=== PATIENT | female | born 1965 | race Caucasian/White ===

== ENCOUNTER 2022-03-20 10:52 | Inpatient (IN) ==
[2022-03-20 12:01] LABS: Appearance Urine Clear (Clear); Bacteria Urine Automated 1+ (Negative); Blood Urine Negative (Negative); Color Urine Dark Yellow; Epithelial Cell Urine Auto >30 /lpf (0-5); Glucose Urine UA Negative (Negative); Ketones Urine Trace (Negative); Leukocyte Esterase Urine Trace (Negative); Nitrite Urine Negative (Negative); Protein Urine Trace (Negative); Specific Gravity Urine 1.023 (1.000-1.030); Urobilinogen Urine Negative (Negative); pH Urine 6.5 (4.5-7.5)
[2022-03-20 12:02] LABS: Bilirubin Urine 1+ (Negative)
[2022-03-20] MEDS ORDERED: SODIUM CHLORIDE 0.9% 1000ML 1,000 ML IV ONE ×2 (12:05→12:14)
[2022-03-20 12:10] LABS: RBC Urine Automated 0-4 /hpf (0-4)
[2022-03-20] MEDS ORDERED: MoRPHine SULFATE 4 MG/ML 1 ML CARP\\VIAL IV STA (12:13)
[2022-03-20] MEDS ORDERED: ONDANSETRON INJ 2 MG/ML 2 ML VIAL IV STA (12:13)
[2022-03-20] MEDS ORDERED: FAMOTIDINE 20MG IV PUSH 20 MG/5 ML SYR IV STA (12:13)
[2022-03-20] MEDS ORDERED: ACETAMINOPHEN 1,000 MG/100 ML VIAL IV STA (12:13)
[2022-03-20 12:14] LABS: Hematocrit (blood only) 36.1 % (37-47); Hemoglobin 12.6 g/dL (12.0-16.0); Mean Corpuscular Hemoglobin 37.3 pg (25-34); Mean Corpuscular Hgb Conc 34.9 g/dL (32-36); Mean Corpuscular Volume 106.8 fL (80-100); Mean Platelet Volume 10.2 fL (7.4-10.4); Platelet Count 289 K/uL (130-400); RDW Coefficient of Variation 13.6 % (11.5-14.5); RDW Standard Deviation 53.1 fL (36.4-46.3); Red Blood Count 3.38 M/uL (4.2-5.4); White Blood Count 29.38 K/uL (4.8-10.8)
[2022-03-20 12:22] LABS: INR 1.1 (0.9-1.1); Partial Thromboplastin Ratio 0.9; Partial Thromboplastin Time 24.8 Seconds (21.0-31.0); Prothrombin Time 11.7 Seconds (9.0-12.0)
[2022-03-20 12:40] LABS: Albumin Globulin Ratio 1.1 (0.9-2); Albumin Level 4.1 gm/dl (3.4-5.0); BUN Creatinine Ratio 19.8 (10-20); Basophils # (auto) 0.01 K/uL (0-0.2); Bilirubin,Total 0.4 mg/dl (0.2-1.0); Calcium 10.4 mg/dl (8.5-10.1); Creatinine Clr Calc Pharmacy 64.3 ml/min; Eosinophils # (auto) 0.03 K/uL (0-0.5); Eosinophils % (auto) 0.1 %; Est GFR (African American) 68.9 ml/min; Est GFR (Non-African American) 59.5 ml/min; Globulin 3.6 gm/dl (2.5-4.0); Immature Granulocytes # (auto) 0.13 K/uL (0.00-0.02); Immature Granulocytes % (auto) 0.4 %; Lymphocytes # (auto) 1.56 K/uL (1.2-3.4); Lymphocytes % (auto) 5.3 %; Monocytes % (auto) 5.8 %; Neutrophils # (auto) 25.95 K/uL (1.4-6.5); Neutrophils % (auto) 88.4 %; Potassium 3.3 mmol/L (3.5-5.1); Total Protein 7.7 gm/dl (6.0-8.3)
[2022-03-20 12:56] LABS: Influenza A virus by PCR Negative (Neg); Influenza B virus by PCR Negative (Neg); RSV by PCR Negative (Neg); SARS CoV2 RNA(COVID-19) InHosp NEGATIVE (Negative)
[2022-03-20] MEDS ORDERED: OPTIRAY 320 125ml IV ONE (13:13)
--- NOTE | 2022-03-20 13:36 | CT Scan Report ---
CT OF THE ABDOMEN AND PELVIS WITH CONTRAST CLINICAL HISTORY: Metastatic ovarian cancer. Back pain. COMPARISON STUDY: CT of the abdomen and pelvis May 28, 2021. TECHNIQUE: Following IV administration of 120 mL of Optiray, axial images of the abdomen and pelvis w ere obtained from the lung bases to the proximal femurs. Images were reviewed in the axial, sagittal, and coronal planes. IV contrast was administered without complication. Automated exposure control w as utilized for the study. A dose lowering technique was utilized adhering to the principles of FLOYD Virk. Oral contrast was administered. FINDINGS: Please note that the chest CT will be reported separately. No pneumatosis, free air or port al venous gas is present. There has been interval development of extensive hepatic metastatic disease since CT of May 28, 2021. Confluent right hepatic lobe metastases are present. A discrete segment 6 lesion measures 4 cm. There is mild intrahepatic biliary ductal dilatation. There is marked narrowin g of the distal main portal vein as well as the proximal right portal vein due to extrinsic compressi on. A portacaval lymph node measures 3.2 x 2.1 cm and has mass effect upon the IVC. The spleen, adren al glands and pancreas are unremarkable. There is no peripancreatic infiltration. No pancreatic ducta l dilatation is present. Mild left hydroureteronephrosis is noted. There is caliber change of the lef t ureter at the level of the pelvis on axial image 387 of 496. This is likely due to peritoneal impla nts. Extensive peritoneal carcinomatosis is present. No bowel obstruction is present. There may be se jorge implants on the sigmoid colon and rectum. Small sclerotic lesions within the L1 and L4 vertebra l bodies are new since prior CT. These reflect metastases. No pathologic fracture. No epidural extens ion is identified by CT. A small amount of abdominal and pelvic ascites is present. The uterus and ov rodri are surgically absent. Contrast within the colon and rectum from prior CT is present. IMPRESSION: 1. Extensive hepatic, nirmal and peritoneal metastases, as described above. L1 and L4 vertebral body m etastases. No pathologic fracture. No epidural extension. 2. No bowel obstruction. Contrast within the colon and rectum from prior CT may reflect delayed trans it of contrast. 3. Mild left hydroureteronephrosis due to mass effect upon the distal left ureter by implants within the pelvis. 4. Marked extrinsic compression of the main and right portal veins. Mass effect upon the IVC by a pat hologic lymph node. ACT 112: Negative or not required by law. Electronically signed by: Ben Hyde M.D. 03/20/2022 1:35 PM
--- NOTE | 2022-03-20 14:05 | CT Scan Report ---
CT ANGIO CHEST PE PROTOCOL CT DOSE: 979.79 mGycm HISTORY: 56 years-old Female with metastatic ovar ca, back pain r/o PE. Subsequent treatment strate gy. Follow-up study in a patient with history of metastatic ovarian carcinoma. TECHNIQUE: Multiple CTA images of the chest were obtained after the intravenous administration of 120 ml Optiray. Coronal and sagittal MIPS were obtained from the axial data set and were submitted for review. All measurements were obtained according to NASCET criteria. A dose lowering technique was u tilized adhering to the principles of ALARA. COMPARISON: None. CT abdomen and pelvis of same day and also 05/28/2021, chest radiograph 03/20/2018. FINDINGS: CTA: The heart is normal in size. There is no pericardial effusion. There is no thoracic aortic aneurysm o r dissection. Unremarkable pulmonary artery. There are no filling defects identified to suggest throm boembolic disease. CT CHEST: Thyroid nodules measure up to 11 mm on the right. No pathologically enlarged lymph nodes identified w ithin the chest. There is no pneumothorax, pleural effusion or overt pulmonary edema. Mild subsegment al bibasilar atelectasis. There are numerous tiny fissural nodules within the right midlung measuring up to 3 mm. There is a small cluster of subsegmental solid nodules in the lingula on image 180 measu ring up to 4 mm. 4 mm fissural nodule of the left upper lung on image 187. 3 mm solid nodule of the right upper lobe, image 139. The central airways are patent. Unremarkable soft tissues. No destructive bone lesions are identified. Findings within the upper abdo men include new multifocal hepatic metastasis with progressive peritoneal/omental carcinomatosis. Upp er abdominal metastatic lymphadenopathy is also noted. Nonspecific proximal gastric thickening. IMPRESSION: 1. No pulmonary emboli. 2. Numerous tiny bilateral fissural nodules measuring up to 4 mm are suggestive of physiologic lymph nodes. There are a few bilateral solid pulmonary nodules measuring up to 4 mm within the lingula whic h are of low clinical suspicion. Attention at follow-up recommended. 3. Please refer to the CT abdomen and pelvis study of same day for discussion of the hepatic metastas is, omental/peritoneal carcinomatosis and metastatic lymphadenopathy. ACT 112: Negative or not required by law. The above report was generated using voice recognition software. It may contain grammatical, syntax o r spelling errors. Dictated: 03/20/2022 1:34 PM Transcribed: 03/20/2022 1:54 PM Nena [id number] [facility] Electronically signed by: Catracho Chapin M.D. 03/20/2022 2:04 PM
[2022-03-20 14:06] LABS: Magnesium 1.3 mg/dl (1.7-2.4); Phosphorus 3.5 mg/dl (2.5-4.9)
[2022-03-20 14:11] LABS: Troponin I High Sensitivity 13.8 pg/ml (0-14)
[2022-03-20] MEDS ORDERED: CEFEPIME 2,000 MG/20 ML VIAL IV STA (14:39)
[2022-03-20] MEDS ORDERED: LACTATED RINGER'S 500 ML IV ONE (14:42)
[2022-03-20] MEDS ORDERED: LACTATED RINGER'S 1,000 ML IV SCH (14:45)
--- NOTE | 2022-03-20 14:59 | Electrocardiogram Report ---
Test Reason : Blood Pressure : / mmHG Vent. Rate : 100 BPM Atrial Rate : 100 BPM P-R Int : 142 ms QRS Dur : 090 ms QT Int : 354 ms P-R-T Axes : 051 076 045 degrees QTc Int : 456 ms Normal sinus rhythm Normal ECG No previous ECGs available Confirmed by Waldo Vazquez ([id number]) on 03/20/2022 2:59:23 PM Referred By: Confirmed By:Owen Vazquez
[2022-03-20] MEDS: MAGNESIUM SULFATE / D5W 1 GM/100 ML BAG IV SCH ×2 (15:18→16:19)
--- NOTE | 2022-03-20 15:18 | History & Physical Report ---
Date of Service March 20, 2022 Assessment & Plan (1) Nausea & vomiting: (2) Leukocytosis: Plan: Patient is 56-year-old female with PMH right ovarian CA s/p ROSIO and BSO and omentectomy and chemo, HTN, GERD presented to ER with c/o nausea and vomiting WBC: 29, lactate WNL, procalcitonin: 1.7. UA: + Leuk esterase, 1+ bacteria, > 30 epithelial. Was tachycardic in ER at 113 down to 80bpm after IVF Blood cultures pending, urine culture pending Meets SIRS criteria. Possible UTI In ER given cefepime, 2L NSS, 500 mL LR Will continue cefepime IVF CBC, CMP in am (3) Ovarian cancer: (4) Hydronephrosis: Plan: History right ovarian cancer. Metastatic CT abdomen pelvis: 1. Extensive hepatic, nirmal and peritoneal metastases, as described above. L1 and L4 vertebral body metastases. No pathologic fracture. No epidural extension. 2. No bowel obstruction. Contrast within the colon and rectum from prior CT may reflect delayed transit of contrast. 3. Mild left hydroureteronephrosis due to mass effect upon the distal left ureter by implants within the pelvis. 4. Marked extrinsic compression of the main and right portal veins. Mass effect upon the IVC by a pathologic lymph node. No urinary retention. No ELENA. Elevated LFTs Continue oxycodone prn pain with added IV morphine for breakthrough pain Palliative consult Continue oncology follow up (5) Hypomagnesemia: Plan: Magnesium: 1.3 Given 1 g magnesium sulfate in ER Continue magnesium replacement (6) Hypokalemia: Plan: K: 3.3 NSS+ KCl Monitor (7) Hyponatremia: Plan: Na: 131 IVF (8) Hypertension: Plan: Continue lisinopril. Hold HCTZ (9) GERD (gastroesophageal reflux disease): Plan: Continue PPI DVT Prophylaxis Lovenox SQ Full Code as per discussion with pt Follows with Dr Ochoa for routine care Pt was seen and care coordinated with Dr Bautista. See addendum History of Present Illness Chief Complaint: Nausea and vomiting Primary Care Provider: Kenyetta Ochoa MD Patient is 56-year-old female with PMH right ovarian CA s/p ROSIO and BSO and omentectomy and chemo, HTN, GERD presented to ER with c/o nausea and vomiting. Patient reports nausea and vomiting started 3 days ago. has been having left sided back and left hip pain, right sided abdominal pain for months that seems to be getting worse. Reports vomiting and taking Zofran without much relief. Temp 99.6F yesterday. Sweats today. No BM for 6 days. Completed chemo 01/09/2022. Has had recent increasing CA [address] abdomen pelvis on 03/12/2022: Progression of metastatic disease with multiple enlarging and new hepatic metastasis, increasing peritoneal carcinomatosis, new lymphadenopathy and suspected new bony metastatic disease Seen by oncology- Dr Torres on 03/18/2022. Denies hematemesis, melena, hematochezia, PENA, dizziness, syncope, vision changes, neck pain, CP, SOB, orthopnea, palpitations, cough, sore throat, choking, otalgia, rhinorrhea, paresthesias, extremity weakness, extremity edema, rashes, urinary symptoms. Allergies Allergy/AdvReac Type Severity Reaction Status Date / Time No Known Drug Allergies Allergy Unknown NONE Verified 03/20/22 15:15 Home Medications Medication Instructions Recorded Confirmed Type lisinopril 10 1 tab PO DAILY 05/28/21 03/20/22 History mg-hydrochlorothiazide 12.5 mg tablet famotidine 20 mg tablet 20 mg PO BID PRN 03/20/22 03/20/22 History lorazepam 0.5 mg tablet 0.5 mg PO Q6H PRN 03/20/22 03/20/22 History magnesium oxide 400 mg PO BID 03/20/22 03/20/22 History oxycodone-acetaminophen 5 mg-325 1 tab PO Q6H PRN 03/20/22 03/20/22 History mg tablet pantoprazole 40 mg tablet,delayed 40 mg PO DAILY 03/20/22 03/20/22 History release (Protonix) sennosides 8.6 mg tablet (Senokot) 8.6 mg PO BID 03/20/22 03/20/22 History Past Med/Surg History Medical History GERD (gastroesophageal reflux disease) Hypertension Ovarian cancer Tobacco use Surgical History (Updated 03/20/22 @ 19:57 by Brenda Ely PA-C) History of cholecystectomy History of total abdominal hysterectomy and bilateral salpingo-oophorectomy Hx of tonsillectomy Family History (Updated 03/20/22 @ 19:57 by Brenda Ely PA-C) Other Diabetes Hypertension Social History (Updated 03/20/22 @ 15:49 by Brenda Ely PA-C) Smoking Status: Former smoker Tobacco Type: Cigarettes Hx Alcohol Use: No Hx Substance Use: No Preferred Language: Belarusian Communication Ability: Effective Raise Driller Required: No Beliefs That Will Affect Care: None Current Living Situation: Family Other Information That Helps Us Care for You: No Feels Safe at Home: Yes Review of Systems Review of Systems: All systems reviewed & are unremarkable except as noted in HPI & below Physical Exam Physical Exam: General: no acute distress, chronic ill appearing femal e Head: normocephalic, atraumatic Eyes: PERRL, EOM's intact, conjunctiva non-injected, anicteric ENT: normal inspection external ears, nose, mucous membranes mildy dry Neck: supple, trachea midline Lungs: clear, no respiratory distress, no wheezing/rhonchi/rales CV: RRR, no murmur, no pretibial edema Abd: normal BS, soft, + tenderness right upper abdomen to palpation, no rebound Ext: no cyanosis, no calf tenderness Neuro: A&O x 3, no focal deficits noted, normal affect Skin: warm, dry Results & Data Results & Data ([facility]) Vital Signs (Past 12 Hours) Vital Signs Temp Pulse Resp BP Pulse Ox 03/20/22 14:00 78 19 97 03/20/22 13:30 80 18 149/87 H 03/20/22 13:24 76 19 148/91 H 03/20/22 13:12 86 19 03/20/22 12:30 86 22 120/89 03/20/22 12:25 91 H 21 136/78 03/20/22 12:23 90 30 H 03/20/22 10:55 36.4 C L 113 H 16 115/69 98 Laboratory Results Short CBC 03/20/22 Range/Units 11:30 WBC 29.38 H (4.8-10.8) K/uL Hgb 12.6 (12.0-16.0) g/dL Hct 36.1 L (37-47) % Plt Count 289 (130-400) K/uL BMP 03/20/22 11:30 Sodium 131 L Potassium 3.3 L Chloride 85 L Carbon Dioxide 33 H BUN 21 Creatinine 1.06 Glucose 112 H Calcium 10.4 H Liver Function 03/20/22 Range/Units 11:30 Total Bilirubin 0.4 (0.2-1.0) mg/dl AST 82 H (13-39) U/L ALT 102 H (7-52) U/L Alkaline Phosphatase 304 H (34-104) U/L Albumin 4.1 (3.4-5.0) gm/dl Urine 03/20/22 Range/Units 11:20 Urine Color Dark Yellow Urine Appearance Clear (Clear) Urine pH 6.5 (4.5-7.5) Ur Specific [place] 1.023 (1.000-1.030) Urine Protein Trace H (Negative) Urine Glucose (UA) Negative (Negative) Diagnostic Findings Abdomen/Pelvis CT 03/20/22 12:14 CT OF THE ABDOMEN AND PELVIS WITH CONTRAST CLINICAL HISTORY: Metastatic ovarian cancer. Back pain. COMPARISON STUDY: CT of the abdomen and pelvis May 28, 2021. TECHNIQUE: Following IV administration of 120 mL of Optiray, axial images of the abdomen and pelvis were obtained from the lung bases to the proximal femurs. Images were reviewed in the axial, sagittal, and coronal planes. IV contrast was administered without complication. Automated exposure control was utilized for the study. A dose lowering technique was utilized adhering to the principles of ALARA. Oral contrast was administered. FINDINGS: Please note that the chest CT will be reported separately. No pneumatosis, free air or portal venous gas is present. There has been interval development of extensive hepatic metastatic disease since CT of May 28, 2021. Confluent right hepatic lobe metastases are present. A discrete segment 6 lesion measures 4 cm. There is mild intrahepatic biliary ductal dilatation. There is marked narrowing of the distal main portal vein as well as the proximal right portal vein due to extrinsic compression. A portacaval lymph node measures 3.2 x 2.1 cm and has mass effect upon the IVC. The spleen, adrenal glands and pancreas are unremarkable. There is no peripancreatic infiltration. No pancreatic ductal dilatation is present. Mild left hydroureteronephrosis is noted. There is caliber change of the left ureter at the level of the pelvis on axial image 387 of 496. This is likely due to peritoneal implants. Extensive peritoneal carcinomatosis is present. No bowel obstruction is present. There may be serosal implants on the sigmoid colon and rectum. Small sclerotic lesions within the L1 and L4 vertebral bodies are new since prior CT. These reflect metastases. No pathologic fracture. No epidural extension is identified by CT. A small amount of abdominal and pelvic ascites is present. The uterus and ovaries are surgically absent. Contrast within the colon and rectum from prior CT is present. IMPRESSION: 1. Extensive hepatic, nirmal and peritoneal metastases, as described above. L1 and L4 vertebral body metastases. No pathologic fracture. No epidural extension. 2. No bowel obstruction. Contrast within the colon and rectum from prior CT may reflect delayed transit of contrast. 3. Mild left hydroureteronephrosis due to mass effect upon the distal left ureter by implants within the pelvis. 4. Marked extrinsic compression of the main and right portal veins. Mass effect upon the IVC by a pathologic lymph node. ACT 112: Negative or not required by law. Electronically signed by: Ben Hyde M.D. 03/20/2022 1:35 PM Chest CTA 03/20/22 12:14 CT ANGIO CHEST PE PROTOCOL CT DOSE: 979.79 mGycm HISTORY: 56 years-old Female with metastatic ovar ca, back pain r/o PE. Subsequent treatment strategy. Follow-up study in a patient with history of metastatic ovarian carcinoma. TECHNIQUE: Multiple CTA images of the chest were obtained after the intravenous administration of 120 ml Optiray. Coronal and sagittal MIPS were obtained from the axial data set and were submitted for review. All measurements were obtained according to NASCET criteria. A dose lowering technique was utilized adhering to the principles of ALARA. COMPARISON: None. CT abdomen and pelvis of same day and also 05/28/2021, chest radiograph 03/20/2018. FINDINGS: CTA: The heart is normal in size. There is no pericardial effusion. There is no thoracic aortic aneurysm or dissection. Unremarkable pulmonary artery. There are no filling defects identified to suggest thromboembolic disease. CT CHEST: Thyroid nodules measure up to 11 mm on the right. No pathologically enlarged lymph nodes identified within the chest. There is no pneumothorax, pleural effusion or overt pulmonary edema. Mild subsegmental bibasilar atelectasis. There are numerous tiny fissural nodules within the right midlung measuring up to 3 mm. There is a small cluster of subsegmental solid nodules in the lingula on image 180 measuring up to 4 mm. 4 mm fissural nodule of the left upper lung on image 187. 3 mm solid nodule of the right upper lobe, image 139. The central airways are patent. Unremarkable soft tissues. No destructive bone lesions are identified. Findings within the upper abdomen include new multifocal hepatic metastasis with progressive peritoneal/omental carcinomatosis. Upper abdominal metastatic lymphadenopathy is also noted. Nonspecific proximal gastric thickening. IMPRESSION: 1. No pulmonary emboli. 2. Numerous tiny bilateral fissural nodules measuring up to 4 mm are suggestive of physiologic lymph nodes. There are a few bilateral solid pulmonary nodules measuring up to 4 mm within the lingula which are of low clinical suspicion. Attention at follow-up recommended. 3. Please refer to the CT abdomen and pelvis study of same day for discussion of the hepatic metastasis, omental/peritoneal carcinomatosis and metastatic lymphadenopathy. ACT 112: Negative or not required by law. The above report was generated using voice recognition software. It may contain grammatical, syntax or spelling errors. Dictated: 03/20/2022 1:34 PM Transcribed: 03/20/2022 1:54 PM Nena [id number] [facility] Electronically signed by: Catracho Chapin M.D. 03/20/2022 2:04 PM Supervising Physician Co-Signing Physician Notes Date of Service: March 20, 2022 History and physical exam performed by hi History notable for 56-year-old woman With history of right ovarian cancer status post ROSIO and BSO, chemo, hypertension and GERD who presented with nausea and vomiting for the past 3 days with worsening abdominal, left hip and back pain. Also reports constipation for the past 6 days. Physical exam notable for right-sided abdominal tenderness right upper back tenderness. Labs notable for WBC of 29,000, sodium of 131, potassium of 3.3, chloride of 85, bicarbonate of 33, anion gap of 13, calcium of 10.4, magnesium of 1.3, AST of 82, ALT of 102, alkaline phosphatase of 304, procalcitonin of 1.7, urinalysis showed positive leukocyte esterase, WBC of 10-[address] notable for extensive hepatic, nirmal and peritoneal metastasis, L1 and L4 vertebral m etastasis, no bowel obstruction contrast within colon or rectum from prior CT, mild left hydroureteronephrosis due to mass-effect upon distal left ureter by implants within the pelvis. Intractable nausea vomiting Metastatic ovarian cancer Possible sepsis based on SIRS criteria and possible UTI Continue antibiotics Follow-up urine and blood cultures Pain control Bowel regimen Palliative consult Other plans as detailed by Brenda Ely PA-C
--- NOTE | 2022-03-20 16:38 | Communication Note ---
Date of Service: March 20, 2022 History and physical exam performed by me History notable for 56-year-old woman With history of right ovarian cancer status post ROSIO and BSO, chemo, hypertension and GERD who presented with nausea and vomiting for the past 3 days with worsening abdominal, left hip and back pain. Also reports constipation for the past 6 days. Physical exam notable for right-sided abdominal tenderness right upper back tenderness. Labs notable for WBC of 29,000, sodium of 131, potassium of 3.3, chloride of 85, bicarbonate of 33, anion gap of 13, calcium of 10.4, magnesium of 1.3, AST of 82, ALT of 102, alkaline phosphatase of 304, procalcitonin of 1.7, urinalysis showed positive leukocyte esterase, WBC of 10-[address] notable for extensive hepatic, nirmal and peritoneal metastasis, L1 and L4 vertebral metastasis, no bowel obstruction contrast within colon or rectum from prior CT, mild left hydroureteronephrosis due to mass-effect upon distal left ureter by implants within the pelvis. Intractable nausea vomiting Metastatic ovarian cancer Possible sepsis based on SIRS criteria and possible UTI Continue antibiotics Follow-up urine and blood cultures Pain control Bowel regimen Palliative consult Other plans as detailed by Brenda Ely PA-C
[2022-03-20] MEDS ORDERED: bisacodyL 10 MG SUPP PR STA (17:04)
[2022-03-20] MEDS ORDERED: ACETAMINOPHEN 325 MG TAB PO PRN (18:46)
[2022-03-20] MEDS ORDERED: FAMOTIDINE 20 MG TAB PO PRN (18:46)
[2022-03-20] MEDS ORDERED: oxyCODONE/ACETAMINOPHEN 5mg/325mg TAB PO PRN (18:46)
[2022-03-20] MEDS ORDERED: NSS + 20MEQ KCL 20 MEQ/1,000 ML BAG IV SCH (19:15)
[2022-03-20] MEDS ORDERED: MAGNESIUM SULFATE / D5W 1 GM/100 ML BAG IV ONE (19:15)
[2022-03-20] MEDS: MoRPHine SULFATE 4 MG/ML 1 ML CARP\\VIAL IV PRN (19:39)
[2022-03-20] MEDS: POLYETHYLENE (MIRALAX) 17 GM PACK PO SCH (20:12)
[2022-03-20] MEDS: ENOXAPARIN INJ 40 MG/0.4 ML SYR SQ SCH (20:15)
[2022-03-20] MEDS: DOCUSATE SODIUM/SENNA 50/8.6MG TAB PO SCH (20:18)
[2022-03-20] MEDS: ONDANSETRON INJ 2 MG/ML 2 ML VIAL IV PRN (22:27)
[2022-03-20] MEDS: PROMETHAZINE HCL 12.5 MG in SODIUM CHLORIDE 0.9% 50 ML IV PRN (23:59)
[2022-03-21] MEDS: CEFEPIME 2,000 MG in SYRINGE 0 ML IV SCH ×4 (00:01→23:37)
--- NOTE | 2022-03-21 01:30 | Emergency Department Note ---
Impression & Plan Intractable nausea and vomiting, Hypomagnesemia, Hypokalemia, SIRS (systemic inflammatory response syndrome), Metastatic disease, Urinary tract infection ED Provider Note NAME: NATHANAEL BARNARD AGE: 56 SEX: F ARRIVES VIA: Walk-In INFORMANT: Patient ED PROVIDER(S): Kermit Sorensen MD CHIEF COMPLAINT: n/v, dehydration. PLAN: Disposition: Admit MEDICAL DECISION MAKING: The patient is a pleasant 56-year-old woman with a past medical history of metastatic ovarian cancer who presents to the emergency department with persistent nausea and vomiting over the past week where she feels she is becoming increasingly dehydrated. She denies objective fevers but has felt somewhat warm and chills.She reports ongoing mid right back pain that is unchanged but admits that there is increased pain when she breathes. She denies any symptoms. The patient is uncomfortable but in no acute distress, afebrile with HR 100s and otherwise stable vital signs. She appears clinically dry. She has generalized abdominal discomfort without discrete tenderness. WBC 29K, with neutrophil predominance and left shit. H/H 12.6/36.1 without recent for comparison. Platelets wnl. Chemistry without acidosis. Potassium 3.3 and Magnesium 1.3 with repletion initiated. LFTs with AST, ALT, and AP, 82, 102, and 304, respectively total bilirubin, wnl, nonspecific. Procalcitonin was also elevated at 1.7. Patient's urine appeared contaminated however was suspicious for urinary infection. The patient was treated empirically with IV cefepime. Covid-19 PCR negative. Influenza and RSV PCR negative. CTA chest and abd/pelvis performed. Negative for PE. Low suspicion pulmonary nodules seen. Otherwise extensive hepatic, nirmal and peritoneal metastases is seen in additional to metastasis of L1 andL4 vertebral bodies. No fx or epidural extension. Mild left hydroureteronephrosis 2/2 mass effect on distal left ureter 2/2 implants within the pelvis. Compression of main and right portal veins. Mass effect upon IVC 2/2 pathologic node. Given the patient's intractable nausea and vomiting with possible component of sepsis in the setting of patient's metastatic disease reasonable to proceed with admission at this time. Case was discussed with Nakita Ely, [facility] PAC, with Dr. Michele Collier hospitalist who will evaluate the patient for admission. Triage Nursing notes reviewed and agree them. Prior medical records reviewed Vital Signs: reviewed and remarkable for tachycardia. Differential diagnosis: Infection, dehydration, metabolic abnormality, hypo/hyperglycemia, electrolyte disturbance, anemia, hypoxia, cardiac sources, intracerebral event, toxicologic, neurologic, as well as other pathologies. ER treatment provided: See below. Diagnostics interpreted by me: ECG: NSR, 100 bpm, no ectopy, no overt ST elevation or depression. Cardiac Monitoring: An order for continuous cardiac monitoring was placed and demonstrated NSR, 100 bpm, no ectopy. Laboratory studies: See below Imaging studies: See below Consultation(s): Nakita Ely, [facility], with Dr. Michele Collier hospitalist. HPI: The patient is a pleasant 56-year-old woman with a past medical history of metastatic ovarian cancer who presents to the emergency department with persistent nausea and vomiting over the past week where she feels she is becoming increasingly dehydrated. She denies objective fevers but has felt somewhat warm and chills.She reports ongoing mid right back pain that is unchanged but admits that there is increased pain when she breathes. She denies any symptoms. ROS: See above HPI for pertinent positives & negatives. A total of 10 systems reviewed and were otherwise negative. VITALS:See Below PHYSICAL EXAMINATION: GENERAL: Awake, alert, uncomfortable/fatigued-appearing, in no distress HENT: Normocephalic, atraumatic. Oropharynx with dry mucous membranes and otherwise unremarkable. . EYES: Normal conjunctiva. Sclera non-icteric. NECK: Supple. No nuchal rigidity. FROM. No JVD. RESPIRATORY: Clear to auscultation. CARDIAC: Tachycardic rate, normal rhythm. Extremities warm and well perfused. Pulses equal. ABDOMEN: Soft, non-distended. No tenderness to palpation. No rebound or guarding. No masses. RECTAL: Deferred. MUSCULOSKELETAL: Chest examination reveals no tenderness. The back is symmetrical on inspection without obvious abnormality. There is no CVA tenderness to palpation. No joint edema. LOWER EXTREMITIES: Calves are equal size bilaterally and non-tender. No edema. No discoloration. NEURO: Normal sensorium. No sensory or motor deficits noted. SKIN: No rash or jaundice noted. Critical Care: I have personally spent greater than 45 minutes of critical care time in the direct management of this patient. This includes bedside care, interpretation of diagnostic studies, and testing, discussion with consultants, patient, and family members, and other required patient management activities. This 45 minutes is in excess of all separately billable procedures. Kermit Sorensen MD Past Med/Surg History Medical History GERD (gastroesophageal reflux disease) Hypertension Ovarian cancer Tobacco use Surgical History History of cholecystectomy History of total abdominal hysterectomy and bilateral salpingo-oophorectomy Hx of tonsillectomy Family History Other Diabetes Hypertension Social History Smoking Status: Former smoker Tobacco Type: Cigarettes Hx Alcohol Use: No Hx Substance Use: No Preferred Language: Croatian Communication Ability: Effective [employer] Required: No Beliefs That Will Affect Care: None Current Living Situation: Family Other Information That Helps Us Care for You: No Feels Safe at Home: Yes Assistive Devices: Glasses Allergies Allergies Allergy/AdvReac Type Severity Reaction Status Date / Time No Known Drug Allergies Allergy Unknown NONE Verified 03/20/22 15:15 Home Meds Home Medications Medication Instructions Recorded Confirmed lisinopril 10 1 tab PO DAILY 05/28/21 03/20/22 mg-hydrochlorothiazide 12.5 mg tablet famotidine 20 mg tablet 20 mg PO BID PRN 03/20/22 03/20/22 lorazepam 0.5 mg tablet 0.5 mg PO Q6H PRN 03/20/22 03/20/22 magnesium oxide 400 mg PO BID 03/20/22 03/20/22 oxycodone-acetaminophen 5 mg-325 1 tab PO Q6H PRN 03/20/22 03/20/22 mg tablet pantoprazole 40 mg tablet,delayed 40 mg PO DAILY 03/20/22 03/20/22 release (Protonix) sennosides 8.6 mg tablet (Senokot) 8.6 mg PO BID 03/20/22 03/20/22 Results & Data (ED) Vital Signs Vital Signs - 24 hr 03/20/22 16:30 03/20/22 16:31 Pulse Rate 70 71 Respiratory Rate 16 21 Blood Pressure Mean 160 Laboratory Data Attestation: I reviewed the patient's lab results. Result diagrams: 03/21/22 05:44 03/21/22 05:44 Lab Results 03/20/22 03/20/22 03/20/22 Range/Units 11:20 11:25 11:30 WBC 29.38 H (4.8-10.8) K/uL RBC 3.38 L (4.2-5.4) M/uL Hgb 12.6 (12.0-16.0) g/dL Hct 36.1 L (37-47) % MCV 106.8 H (80-100) fL MCH 37.3 H (25-34) pg MCHC 34.9 (32-36) g/dL RDW Std Deviation 53.1 H (36.4-46.3) fL RDW Coeff of Lavon 13.6 (11.5-14.5) % Plt Count 289 (130-400) K/uL MPV 10.2 (7.4-10.4) fL Immature Gran % (Auto) 0.4 % Neut % (Auto) 88.4 % Lymph % (Auto) 5.3 % [place] % (Auto) 5.8 % Eos % (Auto) 0.1 % Baso % (Auto) 0.0 % Neut # (Auto) 25.95 H (1.4-6.5) K/uL Lymph # (Auto) 1.56 (1.2-3.4) K/uL [place] # (Auto) 1.70 H (0.11-0.59) K/uL Eos # (Auto) 0.03 (0-0.5) K/uL Baso # (Auto) 0.01 (0-0.2) K/uL Immature Gran # (Auto) 0.13 H (0.00-0.02) K/uL PT (9.0-12.0) Seconds INR (0.9-1.1) APTT (21.0-31.0) Seconds PTT Ratio Sodium (136-145) mmol/L Potassium (3.5-5.1) mmol/L Chloride (98-107) mmol/L Carbon Dioxide (21-32) mmol/L Anion Gap (3-11) BUN (6-23) mg/dl Creatinine (0.6-1.2) mg/dl Est Cr Clr Drug Dosing ml/min Est GFR ( Amer) ml/min Est GFR (Non-Af Amer) ml/min BUN/Creatinine Ratio (10-20) Glucose (70-99(Fasting)) mg/dl Lactate (0.4-2.0) mmol/L Calcium (8.5-10.1) mg/dl Phosphorus (2.5-4.9) mg/dl Magnesium (1.7-2.4) mg/dl Total Bilirubin (0.2-1.0) mg/dl AST (13-39) U/L ALT (7-52) U/L Alkaline Phosphatase (34-104) U/L Troponin I High Sens (0-14) pg/ml B-Natriuretic Peptide (0-100) pg/ml Total Protein (6.0-8.3) gm/dl Albumin (3.4-5.0) gm/dl Globulin (2.5-4.0) gm/dl Albumin/Globulin Ratio (0.9-2) Procalcitonin (0-0.5) ng/ml Urine Color Dark Yellow Urine Appearance Clear (Clear) Urine pH 6.5 (4.5-7.5) Ur Specific [place] 1.023 (1.000-1.030) Urine Protein Trace H (Negative) Urine Glucose (UA) Negative (Negative) Urine Ketones Trace H (Negative) Urine Blood Negative (Negative) Urine Nitrite Negative (Negative) Urine Bilirubin 1+ H (Negative) Urine Urobilinogen Negative (Negative) Ur Leukocyte Esterase Trace H (Negative) Urine WBC (Auto) 10-30 H (0-5) /hpf Urine RBC (Auto) 0-4 (0-4) /hpf U Hyaline Cast (Auto) 10-30 H (0-5) /lpf U Epithel Cells (Auto) >30 H (0-5) /lpf Urine Bacteria (Auto) 1+ H (Negative) Urine Yeast Not Reportable SARS-CoV-2 (PCR) NEGATIVE (Negative) Influenza Type A (PCR) Negative (Neg) Influenza Type B (PCR) Negative (Neg) RSV (RT-PCR) Negative (Neg) 03/20/22 03/20/22 03/20/22 Range/Units 11:30 11:30 13:20 WBC (4.8-10.8) K/uL RBC (4.2-5.4) M/uL Hgb (12.0-16.0) g/dL Hct (37-47) % MCV (80-100) fL MCH (25-34) pg MCHC (32-36) g/dL RDW Std Deviation (36.4-46.3) fL RDW Coeff of Lavon (11.5-14.5) % Plt Count (130-400) K/uL MPV (7.4-10.4) fL Immature Gran % (Auto) % Neut % (Auto) % Lymph % (Auto) % [place] % (Auto) % Eos % (Auto) % Baso % (Auto) % Neut # (Auto) (1.4-6.5) K/uL Lymph # (Auto) (1.2-3.4) K/uL [place] # (Auto) (0.11-0.59) K/uL Eos # (Auto) (0-0.5) K/uL Baso # (Auto) (0-0.2) K/uL Immature Gran # (Auto) (0.00-0.02) K/uL PT 11.7 (9.0-12.0) Seconds INR 1.1 (0.9-1.1) APTT 24.8 (21.0-31.0) Seconds PTT Ratio 0.9 Sodium 131 L (136-145) mmol/L Potassium 3.3 L (3.5-5.1) mmol/L Chloride 85 L (98-107) mmol/L Carbon Dioxide 33 H (21-32) mmol/L Anion Gap 13 H (3-11) BUN 21 (6-23) mg/dl Creatinine 1.06 (0.6-1.2) mg/dl Est Cr Clr Drug Dosing 64.3 ml/min Est GFR ( Amer) 68.9 ml/min Est GFR (Non-Af Amer) 59.5 ml/min BUN/Creatinine Ratio 19.8 (10-20) Glucose 112 H (70-99(Fasting)) mg/dl Lactate (0.4-2.0) mmol/L Calcium 10.4 H (8.5-10.1) mg/dl Phosphorus 3.5 (2.5-4.9) mg/dl Magnesium 1.3 L (1.7-2.4) mg/dl Total Bilirubin 0.4 (0.2-1.0) mg/dl AST 82 H (13-39) U/L ALT 102 H (7-52) U/L Alkaline Phosphatase 304 H (34-104) U/L Troponin I High Sens 13.8 (0-14) pg/ml B-Natriuretic Peptide (0-100) pg/ml Total Protein 7.7 (6.0-8.3) gm/dl Albumin 4.1 (3.4-5.0) gm/dl Globulin 3.6 (2.5-4.0) gm/dl Albumin/Globulin Ratio 1.1 (0.9-2) Procalcitonin (0-0.5) ng/ml Urine Color Urine Appearance (Clear) Urine pH (4.5-7.5) Ur Specific [place] (1.000-1.030) Urine Protein (Negative) Urine Glucose (UA) (Negative) Urine Ketones (Negative) Urine Blood (Negative) Urine Nitrite (Negative) Urine Bilirubin (Negative) Urine Urobilinogen (Negative) Ur Leukocyte Esterase (Negative) Urine WBC (Auto) (0-5) /hpf Urine RBC (Auto) (0-4) /hpf U Hyaline Cast (Auto) (0-5) /lpf U Epithel Cells (Auto) (0-5) /lpf Urine Bacteria (Auto) (Negative) Urine Yeast SARS-CoV-2 (PCR) (Negative) Influenza Type A (PCR) (Neg) Influenza Type B (PCR) (Neg) RSV (RT-PCR) (Neg) 03/20/22 03/20/22 03/20/22 Range/Units 13:20 13:20 13:20 WBC (4.8-10.8) K/uL RBC (4.2-5.4) M/uL Hgb (12.0-16.0) g/dL Hct (37-47) % MCV (80-100) fL MCH (25-34) pg MCHC (32-36) g/dL RDW Std Deviation (36.4-46.3) fL RDW Coeff of Lavon (11.5-14.5) % Plt Count (130-400) K/uL MPV (7.4-10.4) fL Immature Gran % (Auto) % Neut % (Auto) % Lymph % (Auto) % [place] % (Auto) % Eos % (Auto) % Baso % (Auto) % Neut # (Auto) (1.4-6.5) K/uL Lymph # (Auto) (1.2-3.4) K/uL [place] # (Auto) (0.11-0.59) K/uL Eos # (Auto) (0-0.5) K/uL Baso # (Auto) (0-0.2) K/uL Immature Gran # (Auto) (0.00-0.02) K/uL PT (9.0-12.0) Seconds INR (0.9-1.1) APTT (21.0-31.0) Seconds PTT Ratio Sodium (136-145) mmol/L Potassium (3.5-5.1) mmol/L Chloride (98-107) mmol/L Carbon Dioxide (21-32) mmol/L Anion Gap (3-11) BUN (6-23) mg/dl Creatinine (0.6-1.2) mg/dl Est Cr Clr Drug Dosing ml/min Est GFR ( Amer) ml/min Est GFR (Non-Af Amer) ml/min BUN/Creatinine Ratio (10-20) Glucose (70-99(Fasting)) mg/dl Lactate 1.1 (0.4-2.0) mmol/L Calcium (8.5-10.1) mg/dl Phosphorus (2.5-4.9) mg/dl Magnesium (1.7-2.4) mg/dl Total Bilirubin (0.2-1.0) mg/dl AST (13-39) U/L ALT (7-52) U/L Alkaline Phosphatase (34-104) U/L Troponin I High Sens (0-14) pg/ml B-Natriuretic Peptide 80 (0-100) pg/ml Total Protein (6.0-8.3) gm/dl Albumin (3.4-5.0) gm/dl Globulin (2.5-4.0) gm/dl Albumin/Globulin Ratio (0.9-2) Procalcitonin 1.70 H (0-0.5) ng/ml Urine Color Urine Appearance (Clear) Urine pH (4.5-7.5) Ur Specific [place] (1.000-1.030) Urine Protein (Negative) Urine Glucose (UA) (Negative) Urine Ketones (Negative) Urine Blood (Negative) Urine Nitrite (Negative) Urine Bilirubin (Negative) Urine Urobilinogen (Negative) Ur Leukocyte Esterase (Negative) Urine WBC (Auto) (0-5) /hpf Urine RBC (Auto) (0-4) /hpf U Hyaline Cast (Auto) (0-5) /lpf U Epithel Cells (Auto) (0-5) /lpf Urine Bacteria (Auto) (Negative) Urine Yeast SARS-CoV-2 (PCR) (Negative) Influenza Type A (PCR) (Neg) Influenza Type B (PCR) (Neg) RSV (RT-PCR) (Neg) Administered Medications Enoxaparin Sodium (Enoxaparin Inj 40 Mg/0.4 Ml Syr) 40 mg SQ Q24H [facility] Stop: 04/19/22 19:59 Last Admin: 03/20/22 20:15 Dose: Not Given Documented by: [id number] Cefepime HCl 2,000 mg/ Syringe 20 mls @ 5 mls/min IV Q8H [facility]; Protocol Stop: 03/23/22 00:00 Last Admin: 03/21/22 16:22 Dose: 5 mls/min Documented by: [id number] Admin: 03/21/22 07:25 Dose: 5 mls/min Documented by: [id number] Admin: 03/21/22 00:01 Dose: 5 mls/min Documented by: [id number] Promethazine HCl 12.5 mg/ (Sodium Chloride) 50.5 mls @ 202 mls/hr IV Q6H PRN PRN Reason: Nausea And Vomiting Stop: 04/19/22 23:26 Last Infusion: 03/21/22 00:22 Dose: 0 mls/hr Documented by: [id number] Admin: 03/20/22 23:59 Dose: 202 mls/hr Documented by: [id number] Lisinopril (Lisinopril 10 Mg Tab) 10 mg PO QAM [facility] Stop: 04/20/22 08:59 Last Admin: 03/21/22 07:26 Dose: 10 mg Documented by: [id number] Morphine Sulfate (Morphine Sulfate 4 Mg/Ml 1 Ml Carp\Vial) 3 mg IV Q4H PRN PRN Reason: Severe Pain Stop: 04/03/22 18:45 Last Admin: 03/21/22 12:35 Dose: 3 mg Documented by: [id number] Admin: 03/20/22 19:39 Dose: 3 mg Documented by: [id number] Ondansetron HCl (Ondansetron Inj 2 Mg/Ml 2 Ml Vial) 4 mg IV Q6H PRN PRN Reason: Nausea Stop: 04/19/22 18:45 Last Admin: 03/20/22 22:27 Dose: 4 mg Documented by: [id number] Pantoprazole Sodium (Pantoprazole 40 Mg Tab) 40 mg PO DAILY DIEUDONNE Stop: 04/20/22 08:59 Last Admin: 03/21/22 07:27 Dose: 40 mg Documented by: [id number] Polyethylene Glycol (Polyethylene (Miralax) 17 Gm Pack) 17 gm PO DAILY DIEUDONNE Stop: 04/19/22 18:59 Last Admin: 03/21/22 07:26 Dose: 17 gm Documented by: [id number] Admin: 03/20/22 20:12 Dose: 17 gm Documented by: [id number] Senna/Docusate Sodium (Docusate Sodium/Senna 50/8.6mg Tab) 1 tab PO QAM DIEUDONNE Stop: 04/19/22 19:14 Last Admin: 03/21/22 07:27 Dose: 1 tab Documented by: [id number] Admin: 03/20/22 20:18 Dose: 1 tab Documented by: [id number] Discontinued Medications Bisacodyl (Bisacodyl 10 Mg Supp) 10 mg [place] NOW STA Stop: 03/20/22 17:05 Last Admin: 03/20/22 17:14 Dose: 10 mg Documented by: [id number] Sodium Chloride (Nss 1000ml) 1,000 mls @ 999 mls/hr IV .Q1H1M ONE Stop: 03/20/22 13:05 Last Infusion: 03/20/22 13:29 Dose: 0 mls/hr Documented by: [id number] Admin: 03/20/22 12:32 Dose: 999 mls/hr Documented by: [id number] Famotidine (Pepcid 20mg Iv Push) 20 mg in 5 mls @ 2.5 mls/min IV NOW STA Stop: 03/20/22 12:14 Last Admin: 03/20/22 12:30 Dose: 2.5 mls/min Documented by: [id number] Acetaminophen (Ofirmev) 1,000 mg in 100 mls @ 400 mls/hr IV NOW STA Stop: 03/20/22 12:27 Last Infusion: 03/20/22 12:56 Dose: 0 mls/hr Documented by: [id number] Admin: 03/20/22 12:25 Dose: 400 mls/hr Documented by: [id number] Sodium Chloride (Nss 1000ml) 1,000 mls @ 999 mls/hr IV .Q1H1M ONE Stop: 03/20/22 13:14 Last Infusion: 03/20/22 15:25 Dose: 0 mls/hr Documented by: [id number] Admin: 03/20/22 13:29 Dose: 999 mls/hr Documented by: [id number] Cefepime HCl (Maxipime) 2,000 mg in 20 mls @ 5 mls/min IV NOW STA; Protocol Stop: 03/20/22 14:42 Last Admin: 03/20/22 15:15 Dose: 5 mls/min Documented by: [id number] Magnesium Sulfate/Dextrose (Magnesium Sulfate / D5w) 1 gm in 100 mls @ 100 mls/hr IV Q1H DIEUDONNE Stop: 03/20/22 16:41 Last Infusion: 03/20/22 17:38 Dose: 0 mls/hr Documented by: [id number] Admin: 03/20/22 16:19 Dose: 100 mls/hr Documented by: [id number] Infusion: 03/20/22 16:19 Dose: 0 mls/hr Documented by: [id number] Admin: 03/20/22 15:18 Dose: 100 mls/hr Documented by: [id number] Lactated Ringer's (Lr) 1,000 mls @ 125 mls/hr IV .Q8H DIEUDONNE Stop: 04/19/22 14:44 Last Infusion: 03/20/22 19:51 Dose: 0 mls/hr Documented by: [id number] Admin: 03/20/22 15:56 Dose: 125 mls/hr Documented by: [id number] Lactated Ringer's (Lr) 500 mls @ 999 mls/hr IV .Q31M ONE Stop: 03/20/22 15:12 Last Infusion: 03/20/22 15:56 Dose: 0 mls/hr Documented by: [id number] Admin: 03/20/22 15:18 Dose: 999 mls/hr Documented by: [id number] Magnesium Sulfate/Dextrose (Magnesium Sulfate / D5w) 1 gm in 100 mls @ 50 mls/hr IV ONE ONE Stop: 03/20/22 21:14 Last Infusion: 03/20/22 22:16 Dose: 0 mls/hr Documented by: [id number] Admin: 03/20/22 20:10 Dose: 50 mls/hr Documented by: [id number] Potassium Chloride/Sodium Chloride (Normal Saline W/20 Meq Kcl) 20 meq in 1,000 mls @ 100 mls/hr IV .Q10H DIEUDONNE; Protocol Stop: 03/21/22 05:14 Last Infusion: 03/21/22 07:17 Dose: 0 mls/hr Documented by: [id number] Admin: 03/20/22 20:13 Dose: 100 mls/hr Documented by: [id number] Ioversol (Optiray 320 125ml) 120 ml IV ONCE ONE Stop: 03/20/22 13:14 Last Admin: 03/20/22 13:13 Dose: 120 ml Documented by: [id number] Morphine Sulfate (Morphine Sulfate 4 Mg/Ml 1 Ml Carp\Vial) 4 mg IV NOW STA Stop: 03/20/22 12:14 Last Admin: 03/20/22 12:27 Dose: 4 mg Documented by: [id number] Ondansetron HCl (Ondansetron Inj 2 Mg/Ml 2 Ml Vial) 4 mg IV NOW STA Stop: 03/20/22 12:14 Last Admin: 03/20/22 12:25 Dose: 4 mg Documented by: [id number] Imaging Data Radiologist's Impression: Abdomen/Pelvis CT 03/20/22 12:14 CT OF THE ABDOMEN AND PELVIS WITH CONTRAST CLINICAL HISTORY: Metastatic ovarian cancer. Back pain. COMPARISON STUDY: CT of the abdomen and pelvis May 28, 2021. TECHNIQUE: Following IV administration of 120 mL of Optiray, axial images of the abdomen and pelvis were obtained from the lung bases to the proximal femurs. Images were reviewed in the axial, sagittal, and coronal planes. IV contrast was administered without complication. Automated exposure control was utilized for the study. A dose lowering technique was utilized adhering to the principles of ALARA. Oral contrast was administered. FINDINGS: Please note that the chest CT will be reported separately. No pneumatosis, free air or portal venous gas is present. There has been interval development of extensive hepatic metastatic disease since CT of May 28, 2021. Confluent right hepatic lobe metastases are present. A discrete segment 6 lesion measures 4 cm. There is mild intrahepatic biliary ductal dilatation. There is marked narrowing of the distal main portal vein as well as the proximal right portal vein due to extrinsic compression. A portacaval lymph node measures 3.2 x 2.1 cm and has mass effect upon the IVC. The spleen, adrenal glands and pancreas are unremarkable. There is no peripancreatic infiltration. No pancreatic ductal dilatation is present. Mild left hydroureteronephrosis is noted. There is caliber change of the left ureter at the level of the pelvis on axial image 387 of 496. This is likely due to peritoneal implants. Extensive peritoneal carcinomatosis is present. No bowel obstruction is present. There may be serosal implants on the sigmoid colon and rectum. Small sclerotic lesions within the L1 and L4 vertebral bodies are new since prior CT. These reflect metastases. No pathologic fracture. No epidural extension is identified by CT. A small amount of abdominal and pelvic ascites is present. The uterus and ovaries are surgically absent. Contrast within the colon and rectum from prior CT is present. IMPRESSION: 1. Extensive hepatic, nirmal and peritoneal metastases, as described above. L1 and L4 vertebral body metastases. No pathologic fracture. No epidural extension. 2. No bowel obstruction. Contrast within the colon and rectum from prior CT may reflect delayed transit of contrast. 3. Mild left hydroureteronephrosis due to mass effect upon the distal left ureter by implants within the pelvis. 4. Marked extrinsic compression of the main and right portal veins. Mass effect upon the IVC by a pathologic lymph node. ACT 112: Negative or not required by law. Electronically signed by: Ben Hyde M.D. 03/20/2022 1:35 PM Chest CTA 03/20/22 12:14 CT ANGIO CHEST PE PROTOCOL CT DOSE: 979.79 mGycm HISTORY: 56 years-old Female with metastatic ovar ca, back pain r/o PE. Subsequent treatment strategy. Follow-up study in a patient with history of metastatic ovarian carcinoma. TECHNIQUE: Multiple CTA images of the chest were obtained after the intravenous administration of 120 ml Optiray. Coronal and sagittal MIPS were obtained from the axial data set and were submitted for review. All measurements were obtained according to NASCET criteria. A dose lowering technique was utilized adhering to the principles of ALARA. COMPARISON: None. CT abdomen and pelvis of same day and also 05/28/2021, chest radiograph 03/20/2018. FINDINGS: CTA: The heart is normal in size. There is no pericardial effusion. There is no thoracic aortic aneurysm or dissection. Unremarkable pulmonary artery. There are no filling defects identified to suggest thromboembolic disease. CT CHEST: Thyroid nodules measure up to 11 mm on the right. No pathologically enlarged lymph nodes identified within the chest. There is no pneumothorax, pleural effusion or overt pulmonary edema. Mild subsegmental bibasilar atelectasis. There are numerous tiny fissural nodules within the right midlung measuring up to 3 mm. There is a small cluster of subsegmental solid nodules in the lingula on image 180 measuring up to 4 mm. 4 mm fissural nodule of the left upper lung on image 187. 3 mm solid nodule of the right upper lobe, image 139. The central airways are patent. Unremarkable soft tissues. No destructive bone lesions are identified. Findings within the upper abdomen include new multifocal hepatic metastasis with progressive peritoneal/omental carcinomatosis. Upper abdominal metastatic lymphadenopathy is also noted. Nonspecific proximal gastric thickening. IMPRESSION: 1. No pulmonary emboli. 2. Numerous tiny bilateral fissural nodules measuring up to 4 mm are suggestive of physiologic lymph nodes. There are a few bilateral solid pulmonary nodules measuring up to 4 mm within the lingula which are of low clinical suspicion. Attention at follow-up recommended. 3. Please refer to the CT abdomen and pelvis study of same day for discussion of the hepatic metastasis, omental/peritoneal carcinomatosis and metastatic lymphadenopathy. ACT 112: Negative or not required by law. The above report was generated using voice recognition software. It may contain grammatical, syntax or spelling errors. Dictated: 03/20/2022 1:34 PM Transcribed: 03/20/2022 1:54 PM Nena [id number] [facility] Electronically signed by: Catracho Chapin M.D. 03/20/2022 2:04 PM Discharge Plan Visit Data Chief Complaint: Dehydration Stated Complaint: NAUSEA, VOMITING, BACK PAIN, WEAKNESS ED Provider: Kermit Sorensen Discharge Problem: Intractable nausea and vomiting, Hypomagnesemia, Hypokalemia, SIRS (systemic inflammatory response syndrome), Metastatic disease, Urinary tract infection Patient Disposition: Admitted As Inpatient Discharge Instructions Interventions: ED Discharge Assessment Last Done: 03/20/22 17:56 Discharge Problem: Metastatic disease Qualifiers: Area of secondary neoplastic involvement: unspecified site Qualified Code(s): C79.9 - Secondary malignant neoplasm of unspecified site Urinary tract infection Qualifiers: Urinary tract infection type: acute cystitis Hematuria presence: with hematuria Qualified Code(s): N30.01 - Acute cystitis with hematuria
[2022-03-21 06:48] LABS: Hematocrit (blood only) 32.6 % (37-47); Hemoglobin 10.9 g/dL (12.0-16.0); Mean Corpuscular Hemoglobin 36.2 pg (25-34); Mean Corpuscular Hgb Conc 33.4 g/dL (32-36); Mean Corpuscular Volume 108.3 fL (80-100); Mean Platelet Volume 10.2 fL (7.4-10.4); Platelet Count 221 K/uL (130-400); RDW Standard Deviation 55.6 fL (36.4-46.3); Red Blood Count 3.01 M/uL (4.2-5.4); White Blood Count 27.58 K/uL (4.8-10.8)
[2022-03-21 07:24] LABS: Albumin Globulin Ratio 1.2 (0.9-2); Albumin Level 3.4 gm/dl (3.4-5.0); BUN Creatinine Ratio 17.2 (10-20); Bilirubin,Total 1.2 mg/dl (0.2-1.0); Calcium 8.9 mg/dl (8.5-10.1); Creatinine Clr Calc Pharmacy 80.5 ml/min; Est GFR (African American) 87.5 ml/min; Est GFR (Non-African American) 75.5 ml/min; Globulin 2.9 gm/dl (2.5-4.0); Magnesium 1.9 mg/dl (1.7-2.4); Potassium 3.4 mmol/L (3.5-5.1); Total Protein 6.3 gm/dl (6.0-8.3)
[2022-03-21] MEDS: POLYETHYLENE (MIRALAX) 17 GM PACK PO SCH (07:26)
[2022-03-21] MEDS: lisinopril 10 MG TAB PO SCH (07:26)
[2022-03-21] MEDS: DOCUSATE SODIUM/SENNA 50/8.6MG TAB PO SCH (07:27)
[2022-03-21 07:29] LABS: Basophils # (auto) 0.02 K/uL (0-0.2); Basophils % (auto) 0.1 %; Eosinophils # (auto) 0.07 K/uL (0-0.5); Eosinophils % (auto) 0.3 %; Immature Granulocytes # (auto) 0.14 K/uL (0.00-0.02); Immature Granulocytes % (auto) 0.5 %; Lymphocytes # (auto) 1.18 K/uL (1.2-3.4); Lymphocytes % (auto) 4.3 %; Macrocytosis Present; Monocytes # (auto) 1.47 K/uL (0.11-0.59); Monocytes % (auto) 5.3 %; Neutrophils % (auto) 89.5 %; Ovalocytes 1+
[2022-03-21] MEDS ORDERED: PANTOprazole 40 MG TAB PO SCH (09:00)
[2022-03-21] MEDS: MoRPHine SULFATE 4 MG/ML 1 ML CARP\\VIAL IV PRN ×2 (12:35→21:02)
[2022-03-21] MEDS ORDERED: POTASSIUM CHLORIDE CRTAB 20 MEQ TABCR PO STA (17:23)
--- NOTE | 2022-03-21 17:30 | Hospitalist Progress Note ---
Date of Service March 21, 2022 Assessment & Plan (1) Intractable nausea and vomiting: Plan: 56-year-old female with PMH right ovarian CA s/p ROSIO and BSO and omentectomy and chemo (last dose on January 09, 2022; apparently completed the course per pt), HTN, GERD presented to ER 03/20 with c/o nausea and vomiting. She is being managed for the following: (1) Nausea & vomiting: (2) Leukocytosis: #. Possible sepsis POA 2/2 Likely UTI Plan: Admitting WBC: 29, lactate WNL, procalcitonin: 1.7. UA: + Leuk esterase, 1+ bacteria, > 30 epithelial. Was tachycardic in ER at 113 down to 80bpm after IVF Admitting UA s/o UTI Admitting Blood cultures pending, urine culture pending Continue Cefepime 03/20, continue to monitor labs and follow-up with culture. IVF if not able to eat. Continue with diet as tolerated. Nausea meds, Protonix and Tums Monitor and replete electrolytes (3) Ovarian cancer: (4) Mild left Hydronephrosis: #. Transaminitis Plan: History right ovarian cancer. Metastatic. Status post ROSIO and BSO. Last chemotherapy on January 09, [address] abdomen pelvis: 1. Extensive hepatic, nirmal and peritoneal metastases. L1 and L4 vertebral body metastases. No pathologic fracture. No epidural extension. 2. No bowel obstruction. 3. Mild left hydroureteronephrosis due to mass effect upon the distal left ureter by implants within the pelvis. 4. Marked extrinsic compression of the main and right portal veins. Mass effect upon the IVC by a pathologic lymph node. No urinary retention. No ELENA. Elevated LFTs likely secondary to metastasis. Continue oxycodone prn pain with IV morphine for breakthrough pain Palliative consult Continue oncology follow up as OP. #. Electrolytes abnormality: Hypomagnesemia, hypokalemia, mild hyponatremia Monitor and replete. Hyponatremia likely secondary to decreased oral intake and vomiting. #. Other chronic medical conditions: HTN, GERD Continue/resume home meds as and when appropriate, HCTZ on hold due to hyponatremia. DVT prophylaxis: Lovenox subcu Full code Follows Dr. Ochoa Admission and Anticipated Discharge Date Admission Date: March 20, 2022 Subjective Patient seen and examined at bedside for follow-up of nausea, vomiting, leukocytosis and electrolyte disturbances on the background of recent diagnosis of ovarian cancer. Patient was sitting up in bed, on room air, complains of right upper quadrant pain and back pain, also complains of hard foreign, nausea, vomiting, reports relief with pantoprazole, also complains of not moving bowels in 7 days, has decreased appetite. No new acute events overnight per patient. Continue to monitor, antiemetics, laxatives, Protonix, Tums. Physical Exam Physical Exam: GENERAL: Alert and oriented x3. NAD, on RA. Ill and frail looking. HEENT: No pallor, no icterus. Pupils equal, round and reactive to light. Oral mucosa moist. NECK: No JVD, no neck masses. HEART: S1 and S2 heard. Regular rate and rhythm. No murmur, no gallop. RESPIRATORY SYSTEM: Normal AP diameter. No accessory muscle use. No wheezing, no crackles. ABDOMEN: Soft, bowel sounds present, + RUQ tender, no distention. CENTRAL NERVOUS SYSTEM: No facial droop. Speech is clear. Obeys simple commands. Moves extremities. EXTREMITIES: No edema, no erythema seen. Results & Data Results & Data ([facility]) Vital Signs (Past 12 Hours) Vital Signs Temp Pulse Pulse Resp BP BP Pulse Ox 03/21/22 15:49 85 03/21/22 15:00 36.7 C 84 16 141/82 H 93 03/21/22 11:00 37.1 C 78 162/89 H 95 03/21/22 06:46 36.9 C 78 20 147/86 H 95
[2022-03-21] MEDS: ENOXAPARIN INJ 40 MG/0.4 ML SYR SQ SCH (20:07)
[2022-03-21] MEDS: PANTOprazole 40 MG TAB PO SCH (20:08)
[2022-03-21] MEDS: SODIUM CHLORIDE 0.9% 1000ML 1,000 ML IV SCH (20:09)
[2022-03-21] MEDS: POTASSIUM CHLORIDE / WTR 10 MEQ/100 ML PLCT IV SCH ×3 (20:10→22:17)
[2022-03-21] MEDS ORDERED: CALCIUM CARBONATE 500 MG CHEWABLE TAB PO SCH (21:00)
[2022-03-22] MEDS: MoRPHine SULFATE 4 MG/ML 1 ML CARP\\VIAL IV PRN ×3 (04:41→20:04)
[2022-03-22 06:17] LABS: Hematocrit (blood only) 31.5 % (37-47); Hemoglobin 10.6 g/dL (12.0-16.0); Mean Corpuscular Hemoglobin 36.4 pg (25-34); Mean Corpuscular Hgb Conc 33.7 g/dL (32-36); Mean Corpuscular Volume 108.2 fL (80-100); Mean Platelet Volume 10.2 fL (7.4-10.4); Platelet Count 209 K/uL (130-400); RDW Coefficient of Variation 13.9 % (11.5-14.5); RDW Standard Deviation 55.2 fL (36.4-46.3); Red Blood Count 2.91 M/uL (4.2-5.4); White Blood Count 32.27 K/uL (4.8-10.8)
[2022-03-22 06:33] LABS: Albumin Globulin Ratio 1.2 (0.9-2); Albumin Level 3.3 gm/dl (3.4-5.0); BUN Creatinine Ratio 18.6 (10-20); Bilirubin,Total 3.3 mg/dl (0.2-1.0); Calcium 8.7 mg/dl (8.5-10.1); Creatinine Clr Calc Pharmacy 81.5 ml/min; Est GFR (African American) 88.8 ml/min; Est GFR (Non-African American) 76.6 ml/min; Globulin 2.8 gm/dl (2.5-4.0); Magnesium 1.8 mg/dl (1.7-2.4); Phosphorus 2.2 mg/dl (2.5-4.9); Potassium 3.7 mmol/L (3.5-5.1); Total Protein 6.1 gm/dl (6.0-8.3)
[2022-03-22] MEDS: CEFEPIME 2,000 MG in SYRINGE 0 ML IV SCH (08:27)
[2022-03-22] MEDS: lisinopril 10 MG TAB PO SCH (08:28)
[2022-03-22] MEDS: DOCUSATE SODIUM/SENNA 50/8.6MG TAB PO SCH (08:29)
[2022-03-22] MEDS ORDERED: POT PHOSPHATE MONOBASIC W/ SOD TAB PO SCH (09:00)
[2022-03-22] MEDS: SODIUM CHLORIDE 0.9% 1000ML 1,000 ML IV SCH (09:28)
[2022-03-22] MEDS: PANTOprazole 40 MG TAB PO SCH ×2 (10:08→19:53)
[2022-03-22] MEDS: POLYETHYLENE (MIRALAX) 17 GM PACK PO SCH (10:08)
[2022-03-22] MEDS ORDERED: PIPERACILL/TAZOBAC CONSULT ACTIVE PRN (10:44)
[2022-03-22] MEDS: ONDANSETRON INJ 2 MG/ML 2 ML VIAL IV PRN ×2 (11:04→23:18)
[2022-03-22] MEDS ORDERED: POTASSIUM PHOS 3 MMOL/1 ML INFUSION IV STA (11:55)
[2022-03-22] MEDS ORDERED: PIPERACILLIN/TAZOBACTAM 3.375 GM in DEXTROSE 5% 100 ML IV ONE (12:00)
[2022-03-22] MEDS ORDERED: POTASSIUM PHOSPHATE 15 MMOL in SODIUM CHLORIDE 0.9% 250 ML IV ONE (12:15)
--- NOTE | 2022-03-22 12:33 | Palliative Care Consultation ---
Date of Consultation March 22, 2022 Assessment & Plan (1) Back pain: with bone metastases. She is reluctant to take opioids as she is concerned about constipation and doesn't like how she feels on them. We discussed use of adjuvant decadron for bone pain. She is agreeable. (2) Intractable nausea and vomiting: May benefit from decadron. She is already on protonix and zofran. Monitor with advance to full liquids. (3) Constipation: Monitor on miralax and senna (4) Palliative care encounter: I talked with Zara about her illness and how she is coping. She tells me that her family is very upset and worried that she is going to . I asked her what she thought about that and she said "everyone has to sometime". 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 Her mother is living and is her best friend and support. She realizes that her cancer is very aggressive and is very much wanting to talk wit h Dr. Torres about options for treatment. We talked about needing to address her acute illness before she would be able to have further treatment. She tells me that she is not ready to and has things that she wants to do. When I asked her about that more specifically, she said that she would want to be able to do simple things like chores around the house which is very important to her. She had been scheduled to see Palliative Care at [facility] as an outpatient but was admitted prior to her appointment. She is agreeable to following up with them after discharge to discuss goals further (5) SIRS (systemic inflammatory response syndrome): (6) Tobacco use: (7) Metastatic disease: Area of secondary neoplastic involvement: unspecified site Qualified Code(s): C79.9 - Secondary malignant neoplasm of unspecified site History of Present Illness Reason for Consultation: goals of care Requesting Physician: Brenda Ely PAC Attending Physician: Joaquina Louis MD History of Present Illness 56 yo lady with metastatic ovarian cancer who is s/p ROSIO/BSO in July of 2021. She completed course of chemotherapy in January and is followed by Dr. Torres. She has been having pain in her right flank and RUQ as well as pain in her low back. CT done on 5/10 shows increased hepatic metastases compared to prior scan in January as well as increased peritoneal carcinomatosis and new bony mets at L1 and L4. Additional CT on March 20 shows compression from metastases on left distal ureter with mild hydronephrosis, compression of main and right portal veins as well as IVC. She was admitted with nausea and vomiting and has not had BM for seven days. She has leukocytosis with WBC 32.27, hyperbilirubinemia and transaminitis. She is being treated for sepsis. She had started percocet 5/325 about a week prior to admission and associates this with onset of nausea. There was no obstruction on CT. She has been getting prn zofran and was also started on protonix and thinks there has been some improvement. Diet is advanced to full liquids today. She has been getting IV morphine for pain and has had 27mg OME in the last 24 hours. She describes pain in her back as aching and a pressure sensation in her abdomen. Allergies Allergy/AdvReac Type Severity Reaction Status Date / Time No Known Drug Allergies Allergy Unknown NONE Verified 03/20/22 15:15 Home Medications Medication Instructions Recorded Confirmed Type lisinopril 10 1 tab PO DAILY 05/28/21 03/20/22 History mg-hydrochlorothiazide 12.5 mg tablet famotidine 20 mg tablet 20 mg PO BID PRN 03/20/22 03/20/22 History lorazepam 0.5 mg tablet 0.5 mg PO Q6H PRN 03/20/22 03/20/22 History magnesium oxide 400 mg PO BID 03/20/22 03/20/22 History oxycodone-acetaminophen 5 mg-325 1 tab PO Q6H PRN 03/20/22 03/20/22 History mg tablet pantoprazole 40 mg tablet,delayed 40 mg PO DAILY 03/20/22 03/20/22 History release (Protonix) sennosides 8.6 mg tablet (Senokot) 8.6 mg PO BID 03/20/22 03/20/22 History Patient History Medical History GERD (gastroesophageal reflux disease) Hypertension Ovarian cancer Tobacco use Surgical History History of cholecystectomy History of total abdominal hysterectomy and bilateral salpingo-oophorectomy Hx of tonsillectomy Family History Other Diabetes Hypertension Social History Smoking Status: Former smoker Tobacco Type: Cigarettes Hx Alcohol Use: No Hx Substance Use: No Preferred Language: Lithuanian Communication Ability: Effective Theatre Instructor Required: No Beliefs That Will Affect Care: None Current Living Situation: Family Other Information That Helps Us Care for You: No Feels Safe at Home: Yes Assistive Devices: Glasses Review of Systems Review of Systems: [place] Symptom Assessment Pain 0/3 at this time Dyspnea 0/3 Fatigue 2/3 Nausea 1/3 Drowsiness 0/3 Anorexia 0/3 Palliative Performance Score 50% Physical Exam Constitutional: no acute distress ENMT: Mouth: oral mucous membranes not dry Respiratory: normal respiratory effort; no labored breathing Cardiovascular: Extremities: no edema Musculoskeletal: Extremities: extremities normal to inspection Skin: warm and dry Neurologic: moves all extremities and awake; not confused Psychiatric: Affect: euthymic affect Results & Data ([facility]) Vital Signs (Past 12 Hours) Vital Signs Temp Pulse Resp BP BP Pulse Ox 03/22/22 10:58 98.8 F 87 17 158/89 H 96 03/22/22 06:46 98.6 F 86 20 147/82 H 95 03/22/22 03:41 98.6 F 90 20 163/87 H 96 PG Care Time/CCT Total # of Minutes Spent Total Time Spent: 75 Total Time Spent with Patient: Total time spent is greater than 50% in coordination of care (as documented) at patient's floor/unit and/or counseling patient:symptom management, goals of care, patient education and support Coding Level of Care Code 64118 Initial Inpt Care Lvl 3 Diagnoses Back pain M54.9 Intractable nausea and vomiting R11.2 Palliative care encounter Z51.5 SIRS (systemic inflammatory response syndrome) R65.10 Tobacco use Z72.0 Metastatic disease C79.9 Area of secondary neoplastic involvement: unspecified site Constipation K59.00
[2022-03-22] MEDS: CALCIUM CARBONATE 500 MG CHEWABLE TAB PO SCH ×2 (16:06→19:52)
--- NOTE | 2022-03-22 17:14 | Hospitalist Progress Note ---
Date of Service March 22, 2022 Assessment & Plan (1) Intractable nausea and vomiting: Plan: 56-year-old female with PMH right ovarian CA s/p ROSIO and BSO and omentectomy and chemo (last dose on January 09, 2022; apparently completed the course per pt), HTN, GERD presented to ER 03/20 with c/o nausea and vomiting. She is being managed for the following: (1) Nausea & vomiting: (2) Leukocytosis: #. Possible sepsis POA 2/2 Likely UTI Plan: Admitting WBC: 29, lactate WNL, procalcitonin: 1.7. UA: + Leuk esterase, 1+ bacteria, > 30 epithelial. Was tachycardic in ER at 113 down to 80bpm after IVF Admitting UA s/o UTI Admitting Blood cultures pending, urine culture pending Continue Cefepime 03/20 --> 03/22 Zosyn (WBC and Procal uptrended), continue to monitor labs and follow-up with culture. IVF if not able to eat. Continue with diet as tolerated. Nausea meds, Protonix and Tums Monitor and replete electrolytes Pt does complain of burn while passing urine, has "foul" looking urine per RN, pt making adequate urine. No belly tenderness today. No head ache or neck pain. (3) Ovarian cancer: (4) Mild left Hydronephrosis: #. Transaminitis Plan: History right ovarian cancer. Metastatic. Status post ROSIO and BSO. Last chemotherapy on January 09, [address] abdomen pelvis: 1. Extensive hepatic, nirmal and peritoneal metastases. L1 and L4 vertebral body metastases. No pathologic fracture. No epidural extension. 2. No bowel obstruction. 3. Mild left hydroureteronephrosis due to mass effect upon the distal left ureter by implants within the pelvis. 4. Marked extrinsic compression of the main and right portal veins. Mass effect upon the IVC by a pathologic lymph node. No urinary retention. No ELENA. Elevated LFTs likely secondary to metastasis. Continue oxycodone prn pain with IV morphine for breakthrough pain. On decadron as well for pain. Minimize opioid use, use laxatives. Palliative evaluated, appreciate recs. Continue oncology follow up as OP. d/w Dr. Torres over the phone, updated current status, no further recs, will need OP f/u once DC'd. #. Electrolytes abnormality: Hypomagnesemia, hypokalemia, mild hyponatremia Monitor and replete. Hyponatremia likely secondary to decreased oral intake and vomiting. #. Other chronic medical conditions: HTN, GERD Continue/resume home meds as and when appropriate, HCTZ on hold due to hyponatremia. DVT prophylaxis: Lovenox subcu Full code Follows Dr. Ochoa Admission and Anticipated Discharge Date Admission Date: March 20, 2022 Subjective Patient seen and examined at bedside for follow-up of nausea, vomiting, leukocytosis and electrolyte disturbances on the background of recent diagnosis of ovarian cancer. Patient was sitting up in bed, on room air, feels about the same, some minimal improvement with nausea and vomiting, was hungry and wants to eat, advance diet as tolerated, feels constipated, will try to decrease opiate pain meds, had vomiting overnight and required morphine for back pain. Patient does complain some nausea. Physical Exam Physical Exam: GENERAL: Alert and oriented x3. NAD, on RA. Ill and frail looking. HEENT: No pallor, no icterus. Pupils equal, round and reactive to light. Oral mucosa moist. NECK: No JVD, no neck masses. HEART: S1 and S2 heard. Regular rate and rhythm. No murmur, no gallop. RESPIRATORY SYSTEM: Normal AP diameter. No accessory muscle use. No wheezing, no crackles. Decreased breath sounds. ABDOMEN: Soft, bowel sounds present, non tender, no distention. CENTRAL NERVOUS SYSTEM: No facial droop. Speech is clear. Obeys simple commands. Moves extremities. EXTREMITIES: No edema, no erythema seen. Results & Data Results & Data ([facility]) Vital Signs (Past 12 Hours) Vital Signs Temp Pulse Resp BP Pulse Ox 03/22/22 15:20 36.9 C 84 18 151/90 H 96 03/22/22 10:58 37.1 C 87 17 158/89 H 96 03/22/22 06:46 37.0 C 86 20 147/82 H 95
[2022-03-22] MEDS: PIPERACILLIN/TAZOBACTAM 3.375 GM in DEXTROSE 5% 100 ML IV SCH (18:35)
[2022-03-22] MEDS: ENOXAPARIN INJ 40 MG/0.4 ML SYR SQ SCH ×2 (19:52→19:56)
[2022-03-22] MEDS: DOCUSATE SODIUM 100 MG CAP PO SCH (20:04)
[2022-03-23] MEDS: PIPERACILLIN/TAZOBACTAM 3.375 GM in DEXTROSE 5% 100 ML IV SCH ×3 (01:40→18:19)
[2022-03-23] MEDS: MoRPHine SULFATE 4 MG/ML 1 ML CARP\\VIAL IV PRN ×4 (01:45→20:26)
[2022-03-23] MEDS: CALCIUM CARBONATE 500 MG CHEWABLE TAB PO SCH ×3 (05:32→18:20)
[2022-03-23] MEDS: PANTOprazole 40 MG TAB PO SCH ×2 (07:55→20:25)
[2022-03-23] MEDS: DOCUSATE SODIUM 100 MG CAP PO SCH ×2 (07:55→20:25)
[2022-03-23] MEDS: lisinopril 10 MG TAB PO SCH (07:55)
[2022-03-23] MEDS: DOCUSATE SODIUM/SENNA 50/8.6MG TAB PO SCH (07:56)
[2022-03-23] MEDS: POLYETHYLENE (MIRALAX) 17 GM PACK PO SCH (07:56)
[2022-03-23] MEDS: dexAMETHasone 4 MG TAB PO SCH (07:56)
[2022-03-23 08:44] LABS: Hematocrit (blood only) 32.2 % (37-47); Hemoglobin 11.2 g/dL (12.0-16.0); Mean Corpuscular Hemoglobin 37.7 pg (25-34); Mean Corpuscular Hgb Conc 34.8 g/dL (32-36); Mean Corpuscular Volume 108.4 fL (80-100); Mean Platelet Volume 10.3 fL (7.4-10.4); Platelet Count 188 K/uL (130-400); RDW Coefficient of Variation 13.9 % (11.5-14.5); RDW Standard Deviation 54.9 fL (36.4-46.3); Red Blood Count 2.97 M/uL (4.2-5.4)
[2022-03-23 09:14] LABS: BUN Creatinine Ratio 19.6 (10-20); Calcium 9.1 mg/dl (8.5-10.1); Creatinine Clr Calc Pharmacy 76.1 ml/min; Est GFR (African American) 81.8 ml/min; Est GFR (Non-African American) 70.6 ml/min; Magnesium 1.8 mg/dl (1.7-2.4); Phosphorus 2.9 mg/dl (2.5-4.9); Potassium 3.8 mmol/L (3.5-5.1)
[2022-03-23] MEDS: ONDANSETRON INJ 2 MG/ML 2 ML VIAL IV PRN (11:58)
--- NOTE | 2022-03-23 13:22 | Ultrasound Report ---
US liver CLINICAL HISTORY: Right upper quadrant tenderness. Metastatic ovarian cancer. COMPARISON STUDY: CT of the abdomen and pelvis March 20, 2022. FINDINGS: There is no biliary ductal dilatation status post cholecystectomy. Common bile duct measure s 5 mm in caliber. A small amount of right upper quadrant ascites is present. Numerous hepatic lesion s are noted. These correspond to the lesions on CT of March 20, 2022. Pancreas is largely obscured. The re is no right hydronephrosis. IMPRESSION: 1. Redemonstration of numerous hepatic metastases as shown on CT of March 20, 2022. 2. Small amount of ascites within the right upper quadrant. 3. No biliary ductal dilatation. ACT 112: Negative or not required by law. Electronically signed by: Ben Hyde M.D. 03/23/2022 1:20 PM
--- NOTE | 2022-03-23 17:37 | Hospitalist Progress Note ---
Date of Service March 23, 2022 Assessment & Plan (1) Intractable nausea and vomiting: Plan: 56-year-old female with PMH right ovarian CA s/p ROSIO and BSO and omentectomy and chemo (last dose on January 09, 2022; apparently completed the course per pt), HTN, GERD presented to ER 03/20 with c/o nausea and vomiting. She is being managed for the following: (1) Nausea & vomiting: (2) Leukocytosis: #. Possible sepsis POA 2/2 Likely UTI Plan: Admitting WBC: 29, lactate WNL, procalcitonin: 1.7. UA: + Leuk esterase, 1+ bacteria, > 30 epithelial. Was tachycardic in ER at 113 down to 80bpm after IVF Admitting UA s/o UTI Admitting Blood cultures pending, no growth 48 hours Pt does complain of burn while passing urine -->improving. Continue Cefepime 03/20 --> 03/22 Zosyn (WBC and Procal uptrended), continue to monitor labs and follow-up with culture. Minimal improvement w/ diet. Continue with diet as tolerated. Nausea meds, Protonix and Tums Monitor and replete electrolytes (3) Ovarian cancer: (4) Mild left Hydronephrosis: #. Transaminitis Plan: History right ovarian cancer. Metastatic. Status post ROSIO and BSO. Last chemotherapy on January 09, [address] abdomen pelvis: 1. Extensive hepatic, nirmal and peritoneal metastases. L1 and L4 vertebral body metastases. No pathologic fracture. No epidural extension. 2. No bowel obstruction. 3. Mild left hydroureteronephrosis due to mass effect upon the distal left ureter by implants within the pelvis. 4. Marked extrinsic compression of the main and right portal veins. Mass effect upon the IVC by a pathologic lymph node. No urinary retention. No ELENA. Elevated LFTs likely secondary to metastasis. Continue oxycodone prn pain with IV morphine for breakthrough pain. On decadron as well for pain. Minimize opioid use, use laxatives. Palliative evaluated, appreciate recs. Continue oncology follow up as OP. d/w Dr. Torres over the phone 03/22, updated current status, no further recs, will need OP f/u once DC'd. #. Electrolytes abnormality: Hypomagnesemia, hypokalemia, mild hyponatremia Monitor and replete. Hyponatremia likely secondary to decreased oral intake and vomiting. #. Other chronic medical conditions: HTN, GERD Continue/resume home meds as and when appropriate, HCTZ on hold due to hyp onatremia. DVT prophylaxis: Lovenox subcu Full code Follows Dr. Ochoa Disposition: PT/OT to [facility] to assist with DC planning. Patient appears weak and fatigued from the disease process, will likely need placement. Patient has follow-up with oncology as an outpatient. Dr. Torres aware. Admission and Anticipated Discharge Date Admission Date: March 20, 2022 Subjective Patient seen and examined at bedside for follow-up of nausea, vomiting, leukocytosis and electrolyte disturbances on the background of recent diagnosis of ovarian cancer. Patient was sitting up in bed, on room air, feels tired, some minimal improvement with nausea and vomiting, eating minimally better, advance diet as tolerated, feels constipated, will try to decrease opiate pain meds. Reports some rt upper belly pain today. Physical Exam Physical Exam: GENERAL: Alert and oriented x3. NAD, on RA. Ill and frail looking. HEENT: No pallor, no icterus. Pupils equal, round and reactive to light. Oral mucosa moist. NECK: No JVD, no neck masses. HEART: S1 and S2 heard. Regular rate and rhythm. No murmur, no gallop. RESPIRATORY SYSTEM: Normal AP diameter. No accessory muscle use. No wheezing, no crackles. Decreased breath sounds. ABDOMEN: Soft, bowel sounds present, non tender, no distention. CENTRAL NERVOUS SYSTEM: No facial droop. Speech is clear. Obeys simple commands. Moves extremities. EXTREMITIES: No edema, no erythema seen. Results & Data Results & Data ([facility]) Vital Signs (Past 12 Hours) Vital Signs Temp Pulse Pulse Resp BP Pulse Ox 03/23/22 15:48 87 03/23/22 14:41 37.0 C 94 H 18 139/83 93 03/23/22 11:48 36.9 C 97 H 18 144/83 H 94 03/23/22 07:39 91 H 03/23/22 07:28 36.7 C 61 16 142/72 H 96
[2022-03-23] MEDS: ENOXAPARIN INJ 40 MG/0.4 ML SYR SQ SCH (20:16)
[2022-03-24] MEDS: MoRPHine SULFATE 4 MG/ML 1 ML CARP\\VIAL IV PRN ×5 (00:28→22:23)
[2022-03-24] MEDS: ONDANSETRON INJ 2 MG/ML 2 ML VIAL IV PRN ×3 (00:28→18:07)
[2022-03-24] MEDS: PIPERACILLIN/TAZOBACTAM 3.375 GM in DEXTROSE 5% 100 ML IV SCH ×3 (02:02→18:07)
[2022-03-24] MEDS: DOCUSATE SODIUM 100 MG CAP PO SCH ×2 (08:03→22:19)
[2022-03-24] MEDS: PANTOprazole 40 MG TAB PO SCH ×2 (08:03→22:19)
[2022-03-24] MEDS: dexAMETHasone 4 MG TAB PO SCH (08:03)
[2022-03-24] MEDS: lisinopril 10 MG TAB PO SCH (08:04)
[2022-03-24] MEDS: POLYETHYLENE (MIRALAX) 17 GM PACK PO SCH ×3 (08:04→20:52)
[2022-03-24] MEDS: CALCIUM CARBONATE 500 MG CHEWABLE TAB PO SCH ×3 (08:04→21:03)
[2022-03-24] MEDS: DOCUSATE SODIUM/SENNA 50/8.6MG TAB PO SCH (08:04)
[2022-03-24 08:32] LABS: INR 1.3 (0.9-1.1); Prothrombin Time 14.1 Seconds (9.0-12.0)
[2022-03-24 08:48] LABS: Hemoglobin 11.4 g/dL (12.0-16.0); Mean Corpuscular Hemoglobin 36.2 pg (25-34); Mean Corpuscular Hgb Conc 33.5 g/dL (32-36); Mean Corpuscular Volume 107.9 fL (80-100); Mean Platelet Volume 10.2 fL (7.4-10.4); Platelet Count 181 K/uL (130-400); RDW Coefficient of Variation 14.3 % (11.5-14.5); RDW Standard Deviation 56.9 fL (36.4-46.3); Red Blood Count 3.15 M/uL (4.2-5.4); White Blood Count 41.61 K/uL (4.8-10.8)
[2022-03-24 09:31] LABS: Albumin Globulin Ratio 1.1 (0.9-2); Albumin Level 3.4 gm/dl (3.4-5.0); BUN Creatinine Ratio 22.4 (10-20); Bilirubin,Total 5.5 mg/dl (0.2-1.0); Calcium 9.3 mg/dl (8.5-10.1); Est GFR (African American) 75.8 ml/min; Est GFR (Non-African American) 65.4 ml/min; Magnesium 1.9 mg/dl (1.7-2.4); Phosphorus 3.1 mg/dl (2.5-4.9); Total Protein 6.4 gm/dl (6.0-8.3)
--- NOTE | 2022-03-24 10:40 | XRay Report ---
XR KUB/Abdomen 1 view CLINICAL HISTORY: constipation. COMPARISON STUDY: No previous studies for comparison. TECHNIQUE: 2 supine radiographs were obtained. FINDINGS: There is residual oral contrast present within the colon from patient's previous CT. There is associa taylor mild fecal stasis without evidence for impaction or obstruction. There is no evidence for organom egaly or gross intra-abdominal mass. No abnormal calcifications are seen along the course of the urin yuliana tracts bilaterally. No acute osseous pathology. IMPRESSION: 1. Residual oral contrast from previous CT with evidence for mild fecal stasis. No impaction or obstr uction is present. ACT 112: Negative or not required by law. Electronically signed by: Db Brito M.D. 03/24/2022 10:38 AM
[2022-03-24] MEDS ORDERED: MINERAL OIL ENEMA 133 ML BTL PR ONE (10:50)
--- NOTE | 2022-03-24 13:13 | Gastrointestinal Consultation ---
Date of Consultation March 24, 2022 Assessment & Plan (1) Ovarian cancer: (2) RUQ abdominal pain: (3) Nausea & vomiting: (4) Cancer, metastatic to liver: MRCP reviewed with no evidence of stentable stricture or evidence of choledocholithiasis Continue Pantoprazole 40 mg by mouth twice daily Continue Pepcid 20 mg by mouth twice daily Increase Zofran to 8 mg IV every 6 hours as needed Increase Miralax to 17 g in 8 oz glass of water twice daily She is to see her Oncologist this week, and possibly resume chemotherapy, as it is most certainly her tumor burden of the liver which is causing some of her acute issues. Continue supportive care History of Present Illness Reason for Consultation: Worsening LFT's Attending Physician: Joaquina Louis MD History of Present Illness Zara Mahan is a pleasant 56 yo CF with a significant PMHx of widely metastatic ovarian cancer who last completed a course of chemotherapy in January 2022. She presented to the ER with complaints of worsening RUQ abdominal pain and associated nausea and vomiting. She underwent a CT Abd/pelvis on 03/12, and was noted to have increased hepatic metastases compared to prior imaging studies. She was also noted to have peritoneal carcinomatosis and bony mets. She underwent a repeat CT scan on arrival to the ER, and was noted to have compression from metastases on left distal ureter with mild hydronephrosis, compression of main and right portal veins as well as IVC. She was subsequently admitted, and has been suffering with recurrent nausea and vomiting since that time. She has also had difficulty with BM's. Since her arrival she has been on Zofran and Compazine for nausea, with some relief. At the time I saw the patient, she was describing RUQ abdominal pain, rated at 4/10 in intensity, chronic, radiating into her back at times. She states that Morphine has been helpful at times. She continues to have "waves of nausea." She does note some scleral icterus and jaundice, which is new. She denies any fevers, chills, hematemesis, melena or hematochezia, and has no further complaints. Allergies Allergy/AdvReac Type Severity Reaction Status Date / Time No Known Drug Allergies Allergy Unknown NONE Verified 03/20/22 15:15 Home Medications Medication Instructions Recorded Confirmed Type lisinopril 10 1 tab PO DAILY 05/28/21 03/20/22 History mg-hydrochlorothiazide 12.5 mg tablet famotidine 20 mg tablet 20 mg PO BID PRN 03/20/22 03/20/22 History lorazepam 0.5 mg tablet 0.5 mg PO Q6H PRN 03/20/22 03/20/22 History magnesium oxide 400 mg PO BID 03/20/22 03/20/22 History oxycodone-acetaminophen 5 mg-325 1 tab PO Q6H PRN 03/20/22 03/20/22 History mg tablet pantoprazole 40 mg tablet,delayed 40 mg PO DAILY 03/20/22 03/20/22 History release (Protonix) sennosides 8.6 mg tablet (Senokot) 8.6 mg PO BID 03/20/22 03/20/22 History Patient History Medical History GERD (gastroesophageal reflux disease) Hypertension Ovarian cancer Tobacco use Surgical History History of cholecystectomy History of total abdominal hysterectomy and bilateral salpingo-oophorectomy Hx of tonsillectomy Family History Other Diabetes Hypertension Social History Smoking Status: Former smoker Tobacco Type: Cigarettes Hx Alcohol Use: No Hx Substance Use: No Preferred Language: Czech Communication Ability: Effective Harpsichord Maker Required: No Beliefs That Will Affect Care: None Current Living Situation: Family Other Information That Helps Us Care for You: No Feels Safe at Home: Yes Assistive Devices: Glasses Review of Systems Constitutional: as per Subjective / HPI Eyes: as per Subjective / HPI Ear, Nose, Mouth, Throat: as per Subjective / HPI Respiratory: as per Subjective / HPI Cardiovascular: as per Subjective / HPI Gastrointestinal: as per Subjective / HPI Musculoskeletal: as per Subjective / HPI Integumentary: as per Subjective / HPI Neurologic: as per Subjective / HPI Psychiatric: as per Subjective / HPI Endocrine: as per Subjective / HPI Hematologic / Lymphatic: as per Subjective / HPI Allergy / Immunological: as per Subjective / HPI Physical Exam Constitutional: WD/WN, vitals as above Eyes: sclerae not anicteric ENMT: external ear and nose normal, oropharynx normal Neck: trachea midline, no thyromegaly Respiratory: normal respiratory effort, lungs clear to auscultation Cardiovascular: RRR, no murmur, no edema Gastrointestinal (Abdomen): normal bowel sounds, soft, nontender, no hepatosplenomegaly Skin: + jaundice Psychiatric: A+Ox3, euthymic affect Mood: + depressed mood Results & Data ([facility]) Vital Signs (Past 12 Hours) Vital Signs Temp Pulse Pulse Resp BP Pulse Ox 03/24/22 11:28 36.7 C 91 H 18 127/82 96 03/24/22 07:12 83 03/24/22 06:31 36.5 C 80 18 148/82 H 95 03/24/22 03:36 36.6 C 83 18 139/82 93 PG Care Time/CCT Total # of Minutes Spent Total Time Spent with Patient: Total time spent is greater than 50% in coordination of care (as documented) at patient's floor/unit and/or counseling patient: Coding Level of Care Code 12913 Inpt Consult Level 4 Diagnoses Ovarian cancer C56.9 RUQ abdominal pain R10.11 Nausea & vomiting R11.2 Cancer, metastatic to liver C78.7
--- NOTE | 2022-03-24 19:13 | Hospitalist Progress Note ---
Date of Service March 24, 2022 Assessment & Plan (1) Intractable nausea and vomiting: Plan: 56-year-old female with PMH right ovarian CA s/p ROSIO and BSO and omentectomy and chemo (last dose on January 09, 2022; apparently completed the course per pt), HTN, GERD presented to ER 03/20 with c/o nausea and vomiting. She is being managed for the following: (1) Nausea & vomiting: d/w her PCP 03/24, nausea has been going on chronically. (2) Leukocytosis: #. Possible sepsis POA 2/2 Likely UTI Plan: Admitting WBC: 29, lactate WNL, procalcitonin: 1.7. UA: + Leuk esterase, 1+ bacteria, > 30 epithelial. Was tachycardic in ER at 113 down to 80bpm after IVF Admitting UA s/o UTI Admitting Blood cultures pending, no growth 48 hours Pt does complain of burn while passing urine -->improving. Continue Cefepime 03/20 --> 03/22 Zosyn (WBC and Procal uptrended), continue to monitor labs and follow-up with culture.--> Transition to oral atb arian. Minimal improvement w/ diet. Continue with diet as tolerated. Nausea meds, Protonix and Tums. Can alternate between zofran and promethazine. Monitor and replete electrolytes Will need Rx for her underlying cancer, pt to f/u w/ Dr. Torres on Friday, CA 125 sent. (3) Ovarian cancer: (4) Mild left Hydronephrosis: #. Transaminitis Plan: History right ovarian cancer. Metastatic. Status post ROSIO and BSO. Last chemotherapy on January 09, [address] abdomen pelvis: 1. Extensive hepatic, nirmal and peritoneal metastases. L1 and L4 vertebral body metastases. No pathologic fracture. No epidural extension. 2. No bowel obstruction. 3. Mild left hydroureteronephrosis due to mass effect upon the distal left ureter by implants within the pelvis. 4. Marked extrinsic compression of the main and right portal veins. Mass effect upon the IVC by a pathologic lymph node. No urinary retention. No ELENA. Elevated LFTs likely secondary to metastasis. Continue oxycodone prn pain with IV morphine for breakthrough pain. On decadron as well for pain. Minimize opioid use, use laxatives. Palliative evaluated, appreciate recs. Continue oncology follow up as OP. d/w Dr. Torres over the phone 03/22, updated current status, no further recs, will need OP f/u once DC'd. #. Electrolytes abnormality: Hypomagnesemia, hypokalemia, mild hyponatremia Monitor and replete. Hyponatremia likely secondary to decreased oral intake and vomiting. #. Other chronic medical conditions: HTN, GERD Continue/resume home meds as and when appropriate, HCTZ on hold due to hyp onatremia. DVT prophylaxis: Lovenox subcu Full code Follows Dr. Ochoa Disposition: PT/OT to eval --> OT recs HH OT eval, CM to assist with DC planning. Likely DC arian. Patient has follow-up with oncology as an outpatient. Dr. Torres aware. Admission and Anticipated Discharge Date Admission Date: March 20, 2022 Subjective Patient seen and examined at bedside for follow-up of nausea, vomiting, leukocytosis and electrolyte disturbances on the background of recent diagnosis of ovarian cancer. Patient was sitting up in bed, on room air, feels tired, some minimal improvement with nausea and vomiting, eating minimally better per RN, advance diet as tolerated, feels constipated will use enema, will try to decrease opiate pain meds. Physical Exam Physical Exam: GENERAL: Alert and oriented x3. NAD, on RA. Ill and frail looking. HEENT: No pallor, no icterus. Pupils equal, round and reactive to light. Oral mucosa moist. NECK: No JVD, no neck masses. HEART: S1 and S2 heard. Regular rate and rhythm. No murmur, no gallop. RESPIRATORY SYSTEM: Normal AP diameter. No accessory muscle use. No wheezing, no crackles. Decreased breath sounds. ABDOMEN: Soft, bowel sounds present, non tender, no distention. CENTRAL NERVOUS SYSTEM: No facial droop. Speech is clear. Obeys simple commands. Moves extremities. EXTREMITIES: No edema, no erythema seen. Results & Data Results & Data ([facility]) Vital Signs (Past 12 Hours) Vital Signs Temp Pulse Pulse Resp BP Pulse Ox 03/24/22 15:17 92 H 03/24/22 14:30 36.8 C 90 18 125/84 93 03/24/22 11:28 36.7 C 91 H 18 127/82 96 03/24/22 07:12 83
[2022-03-24] MEDS: ENOXAPARIN INJ 40 MG/0.4 ML SYR SQ SCH (20:50)
[2022-03-24] MEDS: PROMETHAZINE HCL 12.5 MG in SODIUM CHLORIDE 0.9% 50 ML IV PRN (21:24)
[2022-03-24] MEDS: FAMOTIDINE 20 MG TAB PO SCH (22:19)
[2022-03-25] MEDS: PIPERACILLIN/TAZOBACTAM 3.375 GM in DEXTROSE 5% 100 ML IV SCH ×2 (01:47→09:55)
[2022-03-25] MEDS: MoRPHine SULFATE 4 MG/ML 1 ML CARP\\VIAL IV PRN ×3 (02:46→13:51)
[2022-03-25 07:24] LABS: Hematocrit (blood only) 32.5 % (37-47); Hemoglobin 11.2 g/dL (12.0-16.0); Mean Corpuscular Hemoglobin 37.3 pg (25-34); Mean Corpuscular Hgb Conc 34.5 g/dL (32-36); Mean Corpuscular Volume 108.3 fL (80-100); Mean Platelet Volume 10.8 fL (7.4-10.4); Platelet Count 176 K/uL (130-400); RDW Standard Deviation 55.6 fL (36.4-46.3); White Blood Count 43.92 K/uL (4.8-10.8)
[2022-03-25 07:38] LABS: Albumin Globulin Ratio 1.1 (0.9-2); Albumin Level 3.4 gm/dl (3.4-5.0); BUN Creatinine Ratio 26.9 (10-20); Bilirubin,Total 6.6 mg/dl (0.2-1.0); Calcium 9.8 mg/dl (8.5-10.1); Creatinine Clr Calc Pharmacy 64.3 ml/min; Est GFR (African American) 67.4 ml/min; Est GFR (Non-African American) 58.2 ml/min; Globulin 3.1 gm/dl (2.5-4.0); Phosphorus 3.4 mg/dl (2.5-4.9); Potassium 3.6 mmol/L (3.5-5.1); Total Protein 6.5 gm/dl (6.0-8.3)
[2022-03-25 07:46] LABS: Basophils # (auto) 0.03 K/uL (0-0.2); Basophils % (auto) 0.1 %; Immature Granulocytes # (auto) 0.34 K/uL (0.00-0.02); Immature Granulocytes % (auto) 0.8 %; Lymphocytes # (auto) 1.62 K/uL (1.2-3.4); Lymphocytes % (auto) 3.7 %; Monocytes % (auto) 5.2 %; Neutrophils # (auto) 39.63 K/uL (1.4-6.5); Neutrophils % (auto) 90.2 %
[2022-03-25] MEDS: dexAMETHasone 4 MG TAB PO SCH (08:23)
[2022-03-25] MEDS: PANTOprazole 40 MG TAB PO SCH (08:23)
[2022-03-25] MEDS: FAMOTIDINE 20 MG TAB PO SCH (08:23)
[2022-03-25] MEDS: POLYETHYLENE (MIRALAX) 17 GM PACK PO SCH (08:24)
[2022-03-25] MEDS: DOCUSATE SODIUM/SENNA 50/8.6MG TAB PO SCH (08:24)
[2022-03-25] MEDS: lisinopril 10 MG TAB PO SCH (08:24)
[2022-03-25] MEDS: DOCUSATE SODIUM 100 MG CAP PO SCH (08:24)
[2022-03-25] MEDS: ONDANSETRON INJ 2 MG/ML 2 ML VIAL IV PRN (10:06)
--- NOTE | 2022-03-25 10:50 | Discharge Summary ---
Date of Service March 25, 2022 Admission HPI Per Admitting Provider Patient is 56-year-old female with PMH right ovarian CA s/p ROSIO and BSO and omentectomy and chemo, HTN, GERD presented to ER with c/o nausea and vomiting. Patient reports nausea and vomiting started 3 days ago. has been having left sided back and left hip pain, right sided abdominal pain for months that seems to be getting worse. Reports vomiting and taking Zofran without much relief. Temp 99.6F yesterday. Sweats today. No BM for 6 days. Completed chemo 01/09/2022. Has had recent increasing CA [address] abdomen pelvis on 03/12/2022: Progression of metastatic disease with multiple enlarging and new hepatic meta stasis, increasing peritoneal carcinomatosis, new lymphadenopathy and suspected new bony metastatic disease Seen by oncology- Dr Torres on 03/18/2022. Denies hematemesis, melena, hematochezia, PENA, dizziness, syncope, vision changes, neck pain, CP, SOB, orthopnea, palpitations, cough, sore throat, choking, otalgia, rhinorrhea, paresthesias, extremity weakness, extremity edema, rashes, urinary symptoms. Admission Exam Per Admitting Provider General: no acute distress, chronic ill appearing femal e Head: normocephalic, atraumatic Eyes: PERRL, EOM's intact, conjunctiva non-injected, anicteric ENT: normal inspection external ears, nose, mucous membranes mildy dry Neck: supple, trachea midline Lungs: clear, no respiratory distress, no wheezing/rhonchi/rales CV: RRR, no murmur, no pretibial edema Abd: normal BS, soft, + tenderness right upper abdomen to palpation, no rebound Ext: no cyanosis, no calf tenderness Neuro: A&O x 3, no focal deficits noted, normal affect Skin: warm, dry Principal Diagnosis Intractable nausea and vomiting secondary to underlying metastatic right ovarian cancer. Sepsis POA likely secondary to UTI Transaminitis secondary to hepatic metastasis Electrolyte abnormalities Discharge Exam GENERAL: Alert and oriented x3. NAD, on RA. Ill and frail looking. HEENT: No pallor, no icterus. Pupils equal, round and reactive to light. Oral mucosa moist. NECK: No JVD, no neck masses. HEART: S1 and S2 heard. Regular rate and rhythm. No murmur, no gallop. RESPIRATORY SYSTEM: Normal AP diameter. No accessory muscle use. No wheezing, no crackles. Decreased breath sounds. ABDOMEN: Soft, bowel sounds present, RUQ tender, no distention. CENTRAL NERVOUS SYSTEM: No facial droop. Speech is clear. Obeys simple commands. Moves extremities. EXTREMITIES: No edema, no erythema seen. Discharge Data Allergies Allergy/AdvReac Type Severity Reaction Status Date / Time No Known Drug Allergies Allergy Unknown NONE Verified 03/20/22 15:15 Consultations 03/20/22 14:39 ED Decision to Admit Stat 03/20/22 16:56 Consult Palliative Care Routine 03/24/22 09:52 Consult Gastroenterology Routine Ordered Studies 03/20/22 12:14 CT abd pelvis IV con only Stat CT angio chest PE protocol Stat 03/23/22 10:40 US liver Routine Hospital Course (1) Intractable nausea and vomitin-year-old female with PMH right ovarian CA s/p ROSIO and BSO and omentectomy and chemo (last dose on January 09, 2022; apparently completed the course per pt), HTN, GERD presented to ER 03/20 with c/o nausea and vomiting. She is being managed for the following: (1) Nausea & vomiting: d/w her PCP 03/24, nausea has been going on chronically. (2) Leukocytosis: #. Possible sepsis POA 2/2 Likely UTI Plan: Admitting WBC: 29, lactate WNL, procalcitonin: 1.7. UA: + Leuk esterase, 1+ bacteria, > 30 epithelial. Was tachycardic in ER at 113 down to 80bpm after IVF Admitting UA s/o UTI Admitting Blood cultures pending, no growth 48 hours Pt does complain of burn while passing urine -->improving --> will complete antibiotic course. Continue Cefepime 03/20 --> 03/22 Zosyn (WBC and Procal uptrended), continue to monitor labs and follow-up with culture.--> Transition to Augmentin upon DC. Minimal improvement w/ diet per RN. Continue with diet as tolerated. Nausea meds, Protonix and Tums. Can alternate between zofran and promethazine. Monitor and replete electrolytes. Pt to get CBC and CMP in 3-5 days upon DC. Will need Rx for her underlying cancer, pt to f/u w/ Dr. Torres on Friday, CA 125 sent. (3) Ovarian cancer: (4) Mild left Hydronephrosis: #. Transaminitis Plan: History right ovarian cancer. Metastatic. Status post ROSIO and BSO. Last chemotherapy on January 09, [address] abdomen pelvis: 1. Extensive hepatic, nirmal and peritoneal metastases. L1 and L4 vertebral body metastases. No pathologic fracture. No epidural extension. 2. No bowel obstruction. 3. Mild left hydroureteronephrosis due to mass effect upon the distal left ureter by implants within the pelvis. 4. Marked extrinsic compression of the main and right portal veins. Mass effect upon the IVC by a pathologic lymph node. No urinary retention. No ELENA. Elevated LFTs likely secondary to metastasis. Continue oxycodone prn pain with IV morphine for breakthrough pain. On decadron as well for pain. Minimize opioid use, use laxatives. Palliative evaluated, appreciate recs. Continue oncology follow up as OP. d/w Dr. Torres over the phone 03/22, updated current status, no further recs, will need OP f/u once DC'd. #. Electrolytes abnormality: Hypomagnesemia, hypokalemia, mild hyponatremia Monitor and replete. Hyponatremia likely secondary to decreased oral intake and vomiting.Normalized. #. Other chronic medical conditions: HTN, GERD Continue/resume home meds as and when appropriate,sodium normalized. DVT prophylaxis: Lovenox subcu Full code Follows Dr. Ochoa Disposition: PT/OT to eval --> OT recs OT eval, CM to assist with DC planning. Likely DC arian. Patient has follow-up with oncology as an outpatient. Dr. Torres aware. Patient being discharged to home with OT home health eval, with following instruction at the point of discharge: Follow-up with your primary care physician within a week time. Follow-up with your oncologist Dr. Torres on 03/26/2022 as scheduled. Get your blood work CBC and CMP done in 3 to 5 days upon discharge. Have the results forwarded to your primary care physician. Continue with antibiotic to complete the course for UTI. For your nausea and vomiting, you can alternate between Zofran and Phenergan. Take small meals at a time, can use frequent meals. For your overall condition, nausea and vomiting, liver enzymes abnormality, you will need resuming of treatment for your cancer. Coordinate with your oncology as an outpatient. You will be discharged with pain medication for few days worth, you will need to connect with your oncology or primary care physician for further prescription on pain medications. Take your medications as prescribed. Total Time Total Time Spent Total Time Spent (In Minutes): 40 Discharge Plan Discharge Items Patient Disposition: Home - Home Health Services Reason For Visit: N/V Discharge Diagnosis: Intractable nausea and vomiting secondary to underlying metastatic right ovarian cancer. Sepsis POA likely secondary to UTI Transaminitis secondary to hepatic metastasis Electrolyte abnormalities Activity: Resume your previous activity Non-emergency contact: Primary Care Provider Call non-emergency contact if: you have any medication questions, your symptoms worsen, your pain is not controlled and your temperature is above 101 Follow-up/Referrals: Sajan Torres MD [Hospitalist] - (Date & Time 03/26/2022 8:00 AM Provider Sajan Torres MD Department Hematology/Oncology [facility] ) Kenyetta Ochoa MD [Primary Care Provider] - (Date & Time 03/28/2022 11:20 AM Provider Kenyetta Ochoa MD Department Family Medicine [facility] ) Diet: Regular Diet Texture: Easy to Chew Addtl Attending Provider Instructions: Follow-up with your primary care physician within a week time. Follow-up with your oncologist Dr. Torres on 03/26/2022 as scheduled. Get your blood work CBC and CMP done in 3 to 5 days upon discharge. Have the results forwarded to your primary care physician. Continue with antibiotic to complete the course for UTI. For your nausea and vomiting, you can alternate between Zofran and Phenergan. Take small meals at a time, can use frequent meals. For your overall condition, nausea and vomiting, liver enzymes abnormality, you will need resuming of treatment for your cancer. Coordinate with your oncology as an outpatient. You will be discharged with pain medication for few days worth, you will need to connect with your oncology or primary care physician for further prescription on pain medications. Take your medications as prescribed. Pending Studies at Discharge: Yes (Admitting blood culture.) Stand-Alone Forms: [employer], Smoking Cessation Medications and DC Order Prescriptions: New docusate sodium 100 mg Capsule 100 mg PO BID Qty: 60 RF: 0 amoxicillin-pot clavulanate 875-125 mg tablet 1 tab PO BID 4 Days Qty: 8 RF: 0 Probiotic 3 billion cell capsule 3,000 mmu cells PO DAILY 7 Days Qty: 7 RF: 0 ondansetron 8 mg tablet,disintegrating 8 mg PO Q8H PRN (Reason: nausea and vomiting) Qty: 60 RF: 0 promethazine 25 mg tablet 25 mg PO TID PRN (Reason: nausea and vomiting) Qty: 30 RF: 0 Continued sennosides [Senokot] 8.6 mg Tablet 8.6 mg PO BID RF: 0 famotidine 20 mg Tablet 20 mg PO BID PRN (Reason: Acid Reflux) RF: 0 lorazepam 0.5 mg tablet 0.5 mg PO Q6H PRN (Reason: Anxiety) RF: 0 magnesium oxide 400 mg magnesium Tablet 400 mg PO BID RF: 0 oxycodone-acetaminophen 5-325 mg tablet 1 tab PO Q6H PRN (Reason: Pain) 5 Days Qty: 15 RF: 0 lisinopril-hydrochlorothiazide 10-12.5 mg Tablet 1 tab PO DAILY RF: 0 Changed pantoprazole [Protonix] 40 mg Tablet,Delayed Release (Dr/Ec) 40 mg PO BID Qty: 0 RF: 0 Discharge Orders: Discharge Order (Routine); Ordered 03/25/22 Ordered By: Joaquina Louis Admission Data Admit Date/Time: 03/20/22 16:56 Attending Provider: Joaquina Louis Admit Provider: Erlinda Bautista I. Primary Care Provider: Kenyetta Ochoa Other Providers: Erlinda Bautista I. ; Sofiya Brush ; Vivek Ortiz
--- NOTE | 2022-03-25 13:41 | Palliative Care Progress Note ---
Date of Service March 25, 2022 Assessment & Plan (1) Back pain: Plan: Discharged on oxycodone/APAP 5325. She is reluctant to take with her liver mets. Encouraged her to use this tonight for pain and discuss with Dr. Torres tomorrow. She had an appointment with Palliative Care as an outpatient. I have reached out to Dr. Kessler and updated her. She will reach out to Zara to see her in the next day or two. (2) Intractable nausea and vomiting: Plan: KUB negative for obstruction. (3) Palliative care encounter: Plan: She is eager to talk with Dr. Torres tomorrow. She tells me that she is not ready to and would consider any possible treatments. She would benefit from ongoing palliative care support on discharge and is agreeable to seeing Dr. Kessler who has been updated. (4) Ovarian cancer: (5) Metastatic disease: Admission and Anticipated Discharge Date Admission Date: March 20, 2022 Subjective Sitting up in bed. Continues to have pain and has been receiving IV morphine with five doses in last 24 hours. Continues to have nausea. She has been discharged to home today and is planning to f/u with Dr. Torres tomorrow. Review of Systems Review of Systems: [place] Symptom Assessment Scale Pain 2/3 Dyspnea 0/3 Nausea 2/3 Fatigue 2/3 Drowsiness 0/3 Palliative Performance Score 50% Physical Exam Constitutional: no acute distress ENMT: Mouth: oral mucous membranes not dry Respiratory: normal respiratory effort; no labored breathing Skin: warm and dry Neurologic: awake; no focal motor deficits and not confused Psychiatric: Orientation: oriented x 3 Results & Data ([facility]) Vital Signs (Past 12 Hours) Vital Signs Temp Pulse Pulse Pulse Resp BP BP 03/25/22 10:59 97.7 F 98 H 90 16 127/81 151/90 H 03/25/22 07:41 97.7 F 98 H 16 127/81 03/25/22 06:15 94 H 03/25/22 02:38 97.9 F 91 H 18 151/88 H Pulse Ox 03/25/22 10:59 97 03/25/22 07:41 97 03/25/22 06:15 03/25/22 02:38 95 PG Care Time/CCT Total # of Minutes Spent Total Time Spent: 30 Total Time Spent with Patient: Total time spent is greater than 50% in coordination of care (as documented) at patient's floor/unit and/or counseling patient:symptom management, coordination of care Coding Level of Care Code 89556 Subseq Hosp Care Lvl 2 Diagnoses Back pain M54.9 Palliative care encounter Z51.5 Intractable nausea and vomiting R11.2 Ovarian cancer C56.9 Metastatic disease C79.9 Area of secondary neoplastic involvement: unspecified site (1) Metastatic disease Area of secondary neoplastic involvement: unspecified site Qualified Code(s): C79.9 - Secondary malignant neoplasm of unspecified site
[2022-03-25] MEDS ORDERED: AMOXICILLIN/CLAVULANATE 875 MG TAB PO SCH (17:00)
== END 2022-03-25 14:36 | disposition home health service (06) | DRG 872 ==
LOC: ED 10:52 → SUATTDRO 16:56 → 2N 16:56
DX: R74.01 Elevation of levels of liver transaminase levels; E83.42 Hypomagnesemia; C56.9 Malignant neoplasm of unspecified ovary; N13.30 Unspecified hydronephrosis; K21.9 Gastro-esophageal reflux disease without esophagitis; E86.0 Dehydration; I10 Essential (primary) hypertension; E87.1 Hypo-osmolality and hyponatremia; K59.00 Constipation, unspecified; C79.51 Secondary malignant neoplasm of bone; A41.9 Sepsis, unspecified organism; E87.6 Hypokalemia; Z85.43 Personal history of malignant neoplasm of ovary; C78.6 Secondary malignant neoplasm of retroperitoneum and peritoneum; Z83.3 Family history of diabetes mellitus; C78.7 Secondary malignant neoplasm of liver and intrahepatic bile duct; N39.0 Urinary tract infection, site not specified; Z87.891 Personal history of nicotine dependence